=== PATIENT | female | born 1950 | race Caucasian/White ===

== ENCOUNTER 2016-07-25 23:36 | Emergency (ER) | payer MEDICARE ==
[2016-07-25 23:45] VITALS: RESP 18
[2016-07-26] MEDS ORDERED: DIPH,PERTUS(ACELL)TETVAC-LF 0.5 ML VIAL IM ONE (01:16)
[2016-07-26] MEDS ORDERED: CLINDAMYCIN 150 MG CAP PO STA (01:22)
[2016-07-26] MEDS ORDERED: CIPROFLOXACIN HCL 500 MG TAB PO STA (01:22)
--- NOTE | 2016-07-26 01:29 | ED ---
Animal Bite HPI - General Chief Complaint: Animal Bite Stated Complaint: leg pain-cat scratches Time Seen by Provider: 07/26/16 00:28 Source: patient, RN notes reviewed Mode of arrival: ambulatory Limitations: no limitations - History of Present Illness Initial Comments: Patient is a 66-year-old female presents to the emergency room for evaluation of right lower leg animal bites. Patient states she was playing with her cat and all of a sudden attacked her right lower leg. Patient states this does happen sometimes. Patient states that she has multiple Bites and scratches all over her leg with bleeding. Patient does state they are planning on having the cat quarantined to watch for any abnormal activity. Patient states she is not sure if cat has received rabies vaccine or not. patient states she is not up-to- date on her tetanus vaccine. Patient denies any significant pain. Patient denies numbness or tingling in her feet. Patient denies taking any blood thinners. Patient denies any other injuries during incident. - Related Data Home Medications Medication Instructions Recorded Confirmed Albuterol Inhaler [Ventolin Hfa 1 - 2 puff INHALATION Q6HR PRN 09/05/15 09/08/15 Inhaler] Fluticasone/Salmeterol [Advair 1 inhalation PO BID 09/05/15 09/08/15 100-50 Diskus] Multivitamins, Thera [Multivitamin] 1 tab PO DAILY 09/05/15 09/08/15 Previous Rx's Medication Instructions Recorded Ciprofloxacin HCl [Cipro] 500 mg PO Q12HR 10 Days 07/26/16 Clindamycin [Cleocin] 450 mg PO TID 10 Days 07/26/16 Allergies Allergy/AdvReac Type Severity Reaction Status Date / Time Iodinated Contrast Media - Allergy Rash/Hives Verified 07/25/16 23:46 Oral and [Iodinated Contrast Media - IV Dye] Iodine and Iodide Containing Allergy Rash/Hives Verified 07/25/16 23:46 Produc Penicillins Allergy Rash/Hives Verified 07/25/16 23:46 Review of Systems ROS Statement: Those systems with pertinent positive or pertinent negative responses have been documented in the HPI. ROS Other: All systems not noted in ROS Statement are negative. Past Medical History Past Medical History: Asthma, COPD, GERD/Reflux Additional Past Medical History / Comment(s): hx- hiatal hernia, colitis and loose watery stools History of Any Multi-Drug Resistant Organisms: None Reported Past Surgical History: Adenoidectomy, Breast Surgery, Section, Tonsillectomy Additional Past Surgical History / Comment(s): alia oophorectomy Past Anesthesia/Blood Transfusion Reactions: Motion Sickness Smoking Status: Never smoker Past Alcohol Use History: Occasional Past Drug Use History: None Reported - Past Family History Mother Family Medical History: No Reported History General Exam - General Exam Comments Initial Comments: sitting in exam room, no acute distress. Limitations: no limitations General appearance: alert, in no apparent distress Head exam: Present: atraumatic, normocephalic, normal inspection Eye exam: Present: normal appearance ENT exam: Present: normal exam Neck exam: Present: normal inspection Respiratory exam: Present: normal lung sounds bilaterally. Absent: respiratory distress Cardiovascular Exam: Present: regular rate, normal rhythm, normal heart sounds Right Lower Leg exam: Present: full ROM. Absent: normal inspection (multiple excoriations and puncture wounds from cat bite/cat scratches on the anterior portion of the lower leg from the knee to the ankle), tenderness Neurovascular tendon exam: Present: no vascular compromise. Absent: pulse deficit (2+ dorsal pedal and posterior tibial pulses), abnormal cap refill ( capillary refill less than 2 seconds) Back exam: Present: normal inspection Neurological exam: Present: alert, oriented X3, CN II-XII intact Psychiatric exam: Present: normal affect, normal mood Skin exam: Present: warm, dry Course Vital Signs 07/25/16 07/26/16 23:37 01:44 Temperature 99.2 F 98.7 F Pulse Rate 132 H 112 H Respiratory 18 18 Rate Blood Pressure 192/99 182/87 O2 Sat by Pulse 94 L 95 Oximetry Medical Decision Making - Medical Decision Making Patient is a 66-year-old female presents to the emergency room for revaluation of multiple cat bites and scratches over right lower leg. Patient updated on her tetanus vaccine. Patient ALLERGIC to Augmentin. Patient will be started on clindamycin and Cipro. Advised patient to follow-up with primary care provider for reevaluation of the healing of the wounds. I did discuss high rate of infection. Advised patient to return for any worsening symptoms. Patient does state that they are going to quarantine the cat. Return parameters discussed. Case discussed with Dr. Ku. Disposition Clinical Impression: Cat bite Disposition: HOME SELF-CARE Condition: Good Instructions: Animal Bite (ED) Additional Instructions: Clean affected areas with antibacterial soap and water 3 times a day. Take antibiotics as directed. Take Tylenol or Motrin as needed for pain. Please follow up with primary care provider for reevaluation of the wound area. Keep a watch out for any abnormal activity of cat. If any new symptom arises or symptoms worsen, return to ER as soon as possible. Prescriptions: Ciprofloxacin HCl [Cipro] 500 mg PO Q12HR 10 Days Clindamycin [Cleocin] 450 mg PO TID 10 Days Referrals: None,Stated [Primary Care Provider] - 1-2 days Time of Disposition: 01:26
[2016-07-26 01:54] VITALS: BP 182/87; PULSE 112; TEMP 98.7
== END 2016-07-26 01:54 | disposition home or self-care (01) ==
LOC: EC 23:36
DX: S81.851A Open bite, right lower leg, initial encounter (principal); J44.9 Chronic obstructive pulmonary disease, unspecified; J45.909 Unspecified asthma, uncomplicated; Z79.51 Long term (current) use of inhaled steroids; Z79.899 Other long term (current) drug therapy; Z88.0 Allergy status to penicillin; Z91.041 Radiographic dye allergy status; Z23 Encounter for immunization; W55.03XA Scratched by cat, initial encounter; Y93.89 Activity, other specified
CPT/HCPCS: 90471; 90715; 99283

== ENCOUNTER 2017-07-01 01:00 | Emergency (ER) | payer MEDICARE ==
[2017-07-01 01:07] VITALS: TEMP 98.5
[2017-07-01] MEDS ORDERED: SODIUM CHLORIDE 0.9% 500 ML IV STA (01:17)
[2017-07-01] MEDS ORDERED: ONDANSETRON 4 MG/2 ML VIAL IVP STA (01:17)
--- NOTE | 2017-07-01 01:20 | ED ---
Abdominal Pain HPI - General Chief Complaint: Abdominal Pain Stated Complaint: ABD PAIN Time Seen by Provider: 07/01/17 01:04 Source: EMS Mode of arrival: EMS Limitations: no limitations - History of Present Illness Initial Comments: 66-year-old female patient presents to the emergency department today for evaluation of generalized abdominal pain and nausea. Patient states she has vomited once with this. Patient states that the pain started earlier today and has not let up. Patient states that her abdomen felt hard and distended. She states that she has been having diarrhea throughout the day however this is not unusual as she does have colitis and frequent diarrhea. She denies any fevers or chills. She denies any chest pain, shortness of breath, dizziness, weakness , or sweats. Patient denies any recent rash, back pain, numbness, tingling, hematuria, dysuria, urinary urgency, urinary frequency, headache, visual changes , or any other complaints. - Related Data Home Medications Medication Instructions Recorded Confirmed Albuterol Inhaler [Ventolin Hfa 1 - 2 puff INHALATION Q6HR PRN 09/05/15 09/08/15 Inhaler] Fluticasone/Salmeterol [Advair 1 inhalation PO BID 09/05/15 09/08/15 100-50 Diskus] Multivitamins, Thera [Multivitamin] 1 tab PO DAILY 09/05/15 09/08/15 Previous Rx's Medication Instructions Recorded Ciprofloxacin HCl [Cipro] 500 mg PO Q12HR 10 Days tablet 07/26/16 Clindamycin [Cleocin] 450 mg PO TID 10 Days capsule 07/26/16 Ondansetron [Zofran ODT] 4 mg PO Q8HR PRN #10 tab 07/01/17 Allergies Allergy/AdvReac Type Severity Reaction Status Date / Time Iodinated Contrast- Oral and Allergy Rash/Hives Verified 07/01/17 01:08 IV Dye [Iodinated Contrast Media - IV Dye] Iodine and Iodide Containing Allergy Rash/Hives Verified 07/01/17 01:08 Produc Penicillins Allergy Rash/Hives Verified 07/01/17 01:08 Review of Systems ROS Statement: Those systems with pertinent positive or pertinent negative responses have been documented in the HPI. ROS Other: All systems not noted in ROS Statement are negative. Past Medical History Past Medical History: Asthma, COPD, GERD/Reflux, Hypertension Additional Past Medical History / Comment(s): hx- hiatal hernia, colitis and loose watery stools History of Any Multi-Drug Resistant Organisms: None Reported Past Surgical History: Adenoidectomy, Breast Surgery, Section, Tonsillectomy Additional Past Surgical History / Comment(s): alia oophorectomy Past Anesthesia/Blood Transfusion Reactions: Motion Sickness Past Psychological History: No Psychological Hx Reported Smoking Status: Never smoker Past Alcohol Use History: Occasional Past Drug Use History: None Reported - Past Family History Mother Family Medical History: No Reported History General Exam Limitations: no limitations General appearance: alert, in no apparent distress, other (This is a well- developed, well-nourished adult female patient in no acute distress. Vital signs upon presentation are temperature 98.5F, pulse 106, respirations 20, blood pressure 150/65, pulse ox 91% on room air.) Eye exam: Present: normal appearance, PERRL, EOMI. Absent: scleral icterus, conjunctival injection, periorbital swelling ENT exam: Present: normal exam, normal oropharynx, mucous membranes moist Respiratory exam: Present: normal lung sounds bilaterally. Absent: respiratory distress, wheezes, rales, rhonchi, stridor Cardiovascular Exam: Present: regular rate, normal rhythm, normal heart sounds. Absent: systolic murmur, diastolic murmur, rubs, gallop, clicks GI/Abdominal exam: Present: soft, tenderness (generalized), normal bowel sounds. Absent: distended, guarding, rebound, rigid Neurological exam: Present: alert, oriented X3, CN II-XII intact Psychiatric exam: Present: normal affect, normal mood Skin exam: Present: warm, dry, intact, normal color. Absent: rash Course Vital Signs 07/01/17 07/01/17 01:02 02:38 Temperature 98.5 F Pulse Rate 106 H 102 H Respiratory 20 18 Rate Blood Pressure 150/65 133/60 O2 Sat by Pulse 91 L 95 Oximetry Medical Decision Making - Medical Decision Making 66 year-old female patient with past history significant for colitis present to the emergency department today for evaluation of generalized abdominal pain and vomiting. Physical examination did reveal some mild diffuse nonspecific abdominal tenderness. Labs reviewed and are unremarkable. KUB x-ray of the abdomen did show possible ileus and overall nonobstructive bowel gas pattern. Patient did receive Zofran and pain medication here in the department and is feeling better upon reevaluation. She is instructed to follow-up with her primary care physician for recheck in 1-2 days. Return parameters discussed in detail. She verbalizes understanding and agrees with this plan. - Lab Data Result diagrams: 07/01/17 01:10 07/01/17 01:10 Lab Results 07/01/17 07/01/17 07/01/17 Range/Units 01:10 01:10 02:25 WBC 12.1 H (3.8-10.6) k/uL RBC 4.46 (3.80-5.40) m/uL Hgb 12.4 (11.4-16.0) gm/dL Hct 38.4 (34.0-46.0) % MCV 86.0 (80.0-100.0) fL MCH 27.8 (25.0-35.0) pg MCHC 32.3 (31.0-37.0) g/dL RDW 13.6 (11.5-15.5) % Plt Count 297 (150-450) k/uL Neutrophils % 80 % Lymphocytes % 13 % Monocytes % 5 % Eosinophils % 2 % Basophils % 0 % Neutrophils # 9.7 H (1.3-7.7) k/uL Lymphocytes # 1.5 (1.0-4.8) k/uL Monocytes # 0.6 (0-1.0) k/uL Eosinophils # 0.2 (0-0.7) k/uL Basophils # 0.0 (0-0.2) k/uL Sodium 143 (137-145) mmol/L Potassium 4.0 (3.5-5.1) mmol/L Chloride 106 (98-107) mmol/L Carbon Dioxide 25 (22-30) mmol/L Anion Gap 12 mmol/L BUN 24 H (7-17) mg/dL Creatinine 0.80 (0.52-1.04) mg/dL Est GFR (CKD-EPI)AfAm 89 (>60 ml/min/1.73 sqM) Est GFR (CKD-EPI)NonAf 77 (>60 ml/min/1.73 sqM) Glucose 133 H (74-99) mg/dL Calcium 9.3 (8.4-10.2) mg/dL Total Bilirubin 0.2 (0.2-1.3) mg/dL AST 15 (14-36) U/L ALT 28 (9-52) U/L Alkaline Phosphatase 60 (38-126) U/L Total Protein 6.0 L (6.3-8.2) g/dL Albumin 3.5 (3.5-5.0) g/dL Amylase 67 (30-110) U/L Lipase 136 (23-300) U/L Urine Color Yellow Urine Appearance Clear (Clear) Urine pH 5.5 (5.0-8.0) Ur Specific [place] 1.026 (1.001-1.035) Urine Protein Trace H (Negative) Urine Glucose (UA) Negative (Negative) Urine Ketones Negative (Negative) Urine Blood Negative (Negative) Urine Nitrite Negative (Negative) Urine Bilirubin Negative (Negative) Urine Urobilinogen <2.0 (<2.0) mg/dL Ur Leukocyte Esterase Small H (Negative) Urine RBC 1 (0-5) /hpf Urine WBC 2 (0-5) /hpf Urine Bacteria Rare H (None) /hpf Urine Mucus Rare H (None) /hpf - EKG Data -: EKG Interpreted by [place] EKG Comments: EKG obtained at 03 15 shows normal sinus rhythm with a ventricular rate of 93, [place] interval 156, QRS duration 72, QT 354, QTC 440. No evidence of ST elevation or depression. - Radiology Data Radiology results: report reviewed, image reviewed Two-view x-ray of the abdomen shows some linear density at the left and right lung bases. No sign of intestinal obstruction. There is single loop of gas filled small bowel in the mid abdomen. There is no sign of free air. There are no pathologic calcifications over the kidneys. Impression by Dr. Chan shows possible localized small bowel ileus. Subsegmental atelectasis at the lung bases. Disposition Clinical Impression: Abdominal pain, Ileus Disposition: HOME SELF-CARE Condition: Good Instructions: Abdominal Pain (ED), Ileus (ED) Additional Instructions: Start with clear liquid diet and advance as tolerated. Follow-up through primary care physician for reevaluation in 1-2 days. Return here immediately for any new, worsening, or concerning symptoms. Prescriptions: Ondansetron [Zofran ODT] 4 mg PO Q8HR PRN #10 tab PRN Reason: Nausea Is patient prescribed a controlled substance at d/c from ED?: No Referrals: Edil Davis DO [Primary Care Provider] - 1-2 days Time of Disposition: 03:00
[2017-07-01 01:28] LABS: Basophils % (A) 0 %; Eosinophils # (A) 0.2 k/uL (0-0.7); Eosinophils % (A) 2 %; HCT 38.4 % (34.0-46.0); HGB 12.4 gm/dL (11.4-16.0); Lymphocytes # (A) 1.5 k/uL (1.0-4.8); Lymphocytes % (A) 13 %; MCH 27.8 pg (25.0-35.0); MCHC 32.3 g/dL (31.0-37.0); Mean Platelet Volume 7.7; Monocytes # (A) 0.6 k/uL (0-1.0); Monocytes % (A) 5 %; Neutrophils # (A) 9.7 k/uL (1.3-7.7); Neutrophils % (A) 80 %; Platelet Count 297 k/uL (150-450); RBC 4.46 m/uL (3.80-5.40); RDW 13.6 % (11.5-15.5); WBC 12.1 k/uL (3.8-10.6)
[2017-07-01 01:38] LABS: Albumin 3.5 g/dL (3.5-5.0); Calcium 9.3 mg/dL (8.4-10.2); Total Bilirubin 0.2 mg/dL (0.2-1.3)
--- NOTE | 2017-07-01 02:09 | XR ---
EXAMINATION TYPE: XR KUB DATE OF EXAM: 07/01/2017 COMPARISON: NONE HISTORY: Abdominal pain TECHNIQUE: 2 views FINDINGS: There is some linear density at the left and right lung bases. There is no sign of intestin al obstruction. There is a single loop of gas-filled small bowel in the mid abdomen. There is no sign of free air. There are no pathologic calcifications over the kidneys. IMPRESSION: Possible localized small bowel ileus. Subsegmental atelectasis at the lung bases.
[2017-07-01 02:40] VITALS: BP 133/60; PULSE 102; RESP 18
[2017-07-01 02:43] LABS: Appearance,Urine Clear (Clear); Bacteria,Urine Rare /hpf; Bilirubin,Urine Negative (Negative); Blood,Urine Negative (Negative); Color,Urine Yellow; Glucose,Urine (UA) Negative (Negative); Ketones,Urine Negative (Negative); Leukocyte Esterase,Urine Small (Negative); Mucus,Urine Rare /hpf; Nitrite,Urine Negative (Negative); PH, Urine 5.5 (5.0-8.0); Protein,Urine Trace (Negative); RBC,Urine 1 /hpf (0-5); Specific Gravity,Urine 1.026 (1.001-1.035); Urobilinogen,Urine <2.0 mg/dL (<2.0); WBC,Urine 2 /hpf (0-5)
== END 2017-07-01 03:11 | disposition home or self-care (01) ==
LOC: EC 01:00
DX: K56.7 Ileus, unspecified (principal); J98.11 Atelectasis; K52.9 Noninfective gastroenteritis and colitis, unspecified; J44.9 Chronic obstructive pulmonary disease, unspecified; Z79.51 Long term (current) use of inhaled steroids; Z88.0 Allergy status to penicillin; Z91.041 Radiographic dye allergy status; Z79.899 Other long term (current) drug therapy
CPT/HCPCS: 36415; 93005; 80053; 82150; 83690; 85025; 81001; 74018; 99284; 96374; 96361 ×2; J2405

== ENCOUNTER → 2017-12-04 | Outpatient (CLI) | payer MEDICARE ==
--- NOTE | 2017-12-04 13:43 | US ---
EXAMINATION TYPE: US thyroid st tissue head/neck DATE OF EXAM: 12/04/2017 COMPARISON: US 2016 CLINICAL HISTORY: E01.1 Thyromegaly. Follow up thyroid nodules GLAND SIZE: Right Lobe: 4.3 x 1.6 x 2.3 cm Overall Parenchyma: heterogenous Left Lobe: 4.7 x 1.4 x 1.6 cm Overall Parenchyma: heterogeneous Isthmus Thickness: 0.3 cm NODULES RIGHT: # of nodules measured on right: 2 1. 2.1 X 1.3 x 1.9 cm isoechoic solid nodule at the lower pole with well-defined margins. This nodu le is wider than tall and shows intranodular vascularity. Prior size: 2.1 x 1.4 x 1.6 cm 2. 1.1 X 0.9 x 0.9 cm hypoechoic solid nodule at the lower pole with well-defined margins. This nodu le is wider than tall and shows intranodular vascularity. Prior size: 1.2 x 0.9 x 1.1 cm LEFT: # of nodules measured on left: 0 ISTHMUS: # of nodules measured in the isthmus: 0 Bilateral neck scanned, no evidence of lymphadenopathy. There is heterogeneous normal sized thyroid with redemonstration of 2 solid nodules right thyroid lob e that are not significantly changed in size or appearance. No new nodules are evident. IMPRESSION: Overall stable findings, no new suspicious nodules are present.
== END ==
LOC: RADUSWWP 10:24
PROVIDERS: ATTEND Otolaryngology
DX: E01.0 Iodine-deficiency related diffuse (endemic) goiter (principal)
CPT/HCPCS: 36415; 76536; 84443

== ENCOUNTER → 2017-12-31 | Outpatient (CLI) | payer MEDICARE ==
--- NOTE | 2018-01-02 08:24 | MM ---
Reason for exam: screening (asymptomatic). Last mammogram was performed 3 years and 4 months ago. History: Patient is postmenopausal. Family history of breast cancer in grandmother at age 80. Excisional biopsy of the left breast. Excisional biopsy of the right breast. Physical Findings: Nurse did not find any significant physical abnormalities on exam. MG 3D Screening Mammo W/Cad Bilateral CC and MLO view(s) were taken. Prior study comparison: September 07, 2014, left breast MG work up mamm w CAD LT. September 03, 2014, bilateral MG screening mammo w CAD. The breast tissue is heterogeneously dense. This may lower the sensitivity of mammography. There are benign appearing diffuse, grouped and round calcifications bilaterally. There is chronic nodularity in the right breast. There is no discrete abnormality. ASSESSMENT: Benign, BI-RAD 2 RECOMMENDATION: Routine screening mammogram of both breasts in 1 year.
== END | disposition home or self-care (01) ==
LOC: RADMAMWWP 09:58
PROVIDERS: ATTEND Family Medicine
DX: Z12.31 Encounter for screening mammogram for malignant neoplasm of breast (principal)
CPT/HCPCS: 77063; 77067

== ENCOUNTER → 2019-02-06 | Outpatient (CLI) | payer MEDICARE ==
--- NOTE | 2019-02-07 12:04 | XR ---
EXAMINATION TYPE: XR chest 2V DATE OF EXAM: 02/06/2019 COMPARISON: Prior chest x-ray 04/06/[address] 01/24/2012 HISTORY: Sinus infection and cough TECHNIQUE: Frontal and lateral views of the chest are obtained. FINDINGS: There is no focal air space opacity, pleural effusion, or pneumothorax seen. Minimal scarr ing is not significantly changed. The cardiac silhouette size is within normal limits. The osseous structures are intact. There is hiatal hernia with partial intrathoracic stomach. IMPRESSION: No acute cardiopulmonary process. Exam is stable.
== END | disposition home or self-care (01) ==
LOC: RADXRMAIN 16:22
PROVIDERS: ATTEND Family Medicine
DX: J01.90 Acute sinusitis, unspecified (principal)
CPT/HCPCS: 71046

== ENCOUNTER → 2019-02-06 | Outpatient (CLI) | payer MEDICARE ==
--- NOTE | 2019-02-07 12:01 | US ---
EXAMINATION TYPE: US thyroid st tissue head/neck DATE OF EXAM: 02/06/2019 COMPARISON: US 12/04/2017 CLINICAL HISTORY: E04.9 Goiter. Follow up GLAND SIZE: Right Lobe: 4.1 x 2.0 x 1.7 cm Overall Parenchyma: homogenous Left Lobe: 4.3 x 1.4 x 1.5 cm Overall Parenchyma: homogeneous Isthmus Thickness: 0.4 cm NODULES RIGHT: # of nodules measured on right: 2 1. 1.9 X 1.5 x 1.8 cm isoechoic solid nodule at the mid pole with poorly defined margins; . This n odule is wider than tall and shows intranodular vascularity. Prior size: 2.1 x 1.3 x 1.9 cm 2. 1.3 X 0.8 x 1.1 cm hypoechoic mixed nodule at the mid pole with well-defined margins; . This nod ule is wider than tall and shows intranodular vascularity. Prior size: 1.1 x 0.9 x 0.9 cm LEFT: # of nodules measured on left: 0 ISTHMUS: # of nodules measured in the isthmus: 0 Bilateral neck scanned, no evidence of lymphadenopathy. IMPRESSION: Slight interval change in patient's thyroid nodules likely due to differences in measurement techniqu e. The findings thought to be essentially stable
== END ==
LOC: RADUSWWP 15:52
PROVIDERS: ATTEND Family Medicine
DX: E04.2 Nontoxic multinodular goiter (principal)
CPT/HCPCS: 76536

== ENCOUNTER 2019-12-30 20:24 | Observation (INO) | payer MEDICARE ==
[2019-12-30] MEDS ORDERED: SODIUM CHLORIDE 0.9% 1,000 ML IV STA (21:04)
[2019-12-30] MEDS ORDERED: ACETAMINOPHEN TAB 500 MG TAB PO STA (21:11)
[2019-12-30 21:24] LABS: Basophils # (A) 0.1 k/uL (0-0.2); Basophils % (A) 1 %; Eosinophils # (A) 0.4 k/uL (0-0.7); Eosinophils % (A) 5 %; HGB 7.3 gm/dL (11.4-16.0); Hypochromasia Marked; Lymphocytes % (A) 25 %; MCH 22.4 pg (25.0-35.0); MCHC 30.3 g/dL (31.0-37.0); MCV 73.8 fL (80.0-100.0); Mean Platelet Volume 7.3; Microcytosis Slight; Monocytes # (A) 0.5 k/uL (0-1.0); Monocytes % (A) 6 %; Neutrophils % (A) 61 %; Platelet Count 422 k/uL (150-450); Poikilocytosis Moderate; RBC 3.25 m/uL (3.80-5.40); RDW 15.5 % (11.5-15.5); WBC 8.2 k/uL (3.8-10.6)
--- NOTE | 2019-12-30 21:29 | ED ---
SOB HPI - General Chief Complaint: Shortness of Breath Stated Complaint: SOB Time Seen by Provider: 12/30/19 20:49 Source: patient Mode of arrival: ambulatory Limitations: no limitations - History of Present Illness Initial Comments: 69-year-old female with history of PE and DVT presenting to emergency prompt a chief complaint of shortness of breath. States symptoms began earlier today. She denies any chest pain was report dyspnea on exertion. States this feels like her previous PE. Patient reports unilateral leg swelling in the right lower extremity which has been going on only for today. She does report intermittent swelling in her lower extremity secondary to vascular injury from her previous coagulopathy. She denies hemoptysis, recent periods of activity. States over the past year she has been alternating between multiple blood thin ners. Patient states she has taken normal anticoagulants which she appears to be ALLERGIC to them. States she has been on Coumadin is a recently. States earlier this week, her Coumadin levels have been increased to 3 mg per day. She believes the Coumadin could be playing a role to her shortness of breath. - Related Data Home Medications Medication Instructions Recorded Confirmed Albuterol Nebulized [Ventolin 2.5 mg INHALATION RT-QID PRN 12/30/19 12/30/19 Nebulized] Albuterol Sulfate [Ventolin HFA] 2 puff INHALATION RT-Q6H PRN 12/30/19 12/30/19 Fluticasone Propion/Salmeterol 2 puff INHALATION RT-BID 12/30/19 12/30/19 [Wixela 250-50 Inhub] Warfarin Sodium 3 mg PO HS 12/30/19 12/30/19 Allergies Allergy/AdvReac Type Severity Reaction Status Date / Time Iodinated Contrast Media Allergy Rash/Hives Verified 12/30/19 22:10 [Iodinated Contrast Media - IV Dye] Iodine and Iodide Containing Allergy Rash/Hives Verified 12/30/19 22:10 Produc Penicillins Allergy Rash/Hives Verified 12/30/19 22:10 Review of Systems ROS Statement: Those systems with pertinent positive or pertinent negative responses have been documented in the HPI. ROS Other: All systems not noted in ROS Statement are negative. Past Medical History Past Medical History: Asthma, COPD, GERD/Reflux, Hypertension Additional Past Medical History / Comment(s): hx- hiatal hernia, colitis and loose watery stools, DVTs with PE, History of Any Multi-Drug Resistant Organisms: None Reported Past Surgical History: Adenoidectomy, Breast Surgery, Section, Tonsillectomy Additional Past Surgical History / Comment(s): alia oophorectomy, Past Anesthesia/Blood Transfusion Reactions: Motion Sickness Past Psychological History: No Psychological Hx Reported Smoking Status: Never smoker Past Alcohol Use History: Occasional Past Drug Use History: None Reported - Past Family History Mother Family Medical History: No Reported History General Exam Limitations: no limitations General appearance: alert, in no apparent distress Head exam: Present: atraumatic, normocephalic, normal inspection Eye exam: Present: normal appearance, PERRL, EOMI. Absent: scleral icterus, conjunctival injection, nystagmus Pupils: Present: normal accommodation ENT exam: Present: normal exam, normal oropharynx, mucous membranes moist, TM's normal bilaterally, normal external ear exam Neck exam: Present: normal inspection, full ROM. Absent: tenderness, lympha denopathy Respiratory exam: Present: normal lung sounds bilaterally. Absent: respiratory distress, wheezes, rales, rhonchi, stridor, chest wall tenderness, accessory muscle use Cardiovascular Exam: Present: regular rate, normal rhythm, normal heart sounds GI/Abdominal exam: Present: soft. Absent: distended, tenderness, guarding, rebound, rigid Extremities exam: Present: normal inspection, full ROM, normal capillary refill. Absent: tenderness Back exam: Present: normal inspection, full ROM. Absent: tenderness, CVA tenderness (R), CVA tenderness (L) Neurological exam: Present: alert, oriented X3, normal gait Psychiatric exam: Present: normal affect, normal mood Skin exam: Present: warm, dry, intact, normal color Course Vital Signs 12/30/19 12/30/19 20:28 21:25 Temperature 100.4 F H Pulse Rate 118 H 105 H Respiratory 18 18 Rate Blood Pressure 155/83 142/91 O2 Sat by Pulse 96 100 Oximetry - Reevaluation(s) Reevaluation #1: 12/30/19 22:40 Medical record reviewed Medical Decision Making - Medical Decision Making 69-year-old female presenting to the emergency room chief complaint shortness of breath. Physical examination patient does not appear to be in any respiratory distress. No producible chest pain. No abdominal or back tenderness to palpation. EKG revealed sinus tachycardia. Although, d-dimer was within normal limits. Initial troponins are negative. CBC reveals anemia with hemoglobin of 7.3. Patient informed me that she takes iron supplements was typically make her stool black. She does report history of colitis states her stool has been black over the last week since she is taking the ER supplements. INR is 3.2 due to Coumadin. Type and screen pending. Occult stool pending. Her most recent colonoscopy was over 10 years ago. covid-19 and influenza testing pending. Patient will be admitted for further medical management. Case discussed with Admitting is Dr Sudheer MCINTYRE on consult - Lab Data Result diagrams: 12/30/19 21:11 12/30/19 21:11 Lab Results 12/30/19 12/30/19 12/30/19 Range/Units 21:11 21:11 21:11 WBC 8.2 (3.8-10.6) k/uL RBC 3.25 L (3.80-5.40) m/uL Hgb 7.3 L (11.4-16.0) gm/dL Hct 24.0 L (34.0-46.0) % MCV 73.8 L (80.0-100.0) fL MCH 22.4 L (25.0-35.0) pg MCHC 30.3 L (31.0-37.0) g/dL RDW 15.5 (11.5-15.5) % Plt Count 422 (150-450) k/uL MPV 7.3 Neutrophils % 61 % Lymphocytes % 25 % Monocytes % 6 % Eosinophils % 5 % Basophils % 1 % Neutrophils # 5.0 (1.3-7.7) k/uL Lymphocytes # 2.0 (1.0-4.8) k/uL Monocytes # 0.5 (0-1.0) k/uL Eosinophils # 0.4 (0-0.7) k/uL Basophils # 0.1 (0-0.2) k/uL Hypochromasia Marked Poikilocytosis Moderate Microcytosis Slight PT 31.2 H (9.0-12.0) sec INR 3.2 H (<1.2) APTT 33.7 H (22.0-30.0) sec D-Dimer 0.38 (<0.60) mg/L FEU Sodium 137 (137-145) mmol/L Potassium 4.3 (3.5-5.1) mmol/L Chloride 105 (98-107) mmol/L Carbon Dioxide 27 (22-30) mmol/L Anion Gap 5 mmol/L BUN 23 H (7-17) mg/dL Creatinine 0.95 (0.52-1.04) mg/dL Est GFR (CKD-EPI)AfAm 71 (>60 ml/min/1.73 sqM) Est GFR (CKD-EPI)NonAf 62 (>60 ml/min/1.73 sqM) Glucose 98 (74-99) mg/dL Plasma Lactic Acid Andrey (0.7-2.0) mmol/L Calcium 8.8 (8.4-10.2) mg/dL Total Bilirubin 0.3 (0.2-1.3) mg/dL AST 30 (14-36) U/L ALT 19 (4-34) U/L Alkaline Phosphatase 77 (38-126) U/L Troponin I (0.000-0.034) ng/mL Total Protein 6.7 (6.3-8.2) g/dL Albumin 3.8 (3.5-5.0) g/dL 12/30/19 12/30/19 Range/Units 21:11 21:11 WBC (3.8-10.6) k/uL RBC (3.80-5.40) m/uL Hgb (11.4-16.0) gm/dL Hct (34.0-46.0) % MCV (80.0-100.0) fL MCH (25.0-35.0) pg MCHC (31.0-37.0) g/dL RDW (11.5-15.5) % Plt Count (150-450) k/uL MPV Neutrophils % % Lymphocytes % % Monocytes % % Eosinophils % % Basophils % % Neutrophils # (1.3-7.7) k/uL Lymphocytes # (1.0-4.8) k/uL Monocytes # (0-1.0) k/uL Eosinophils # (0-0.7) k/uL Basophils # (0-0.2) k/uL Hypochromasia Poikilocytosis Microcytosis PT (9.0-12.0) sec INR (<1.2) APTT (22.0-30.0) sec D-Dimer (<0.60) mg/L FEU Sodium (137-145) mmol/L Potassium (3.5-5.1) mmol/L Chloride (98-107) mmol/L Carbon Dioxide (22-30) mmol/L Anion Gap mmol/L BUN (7-17) mg/dL Creatinine (0.52-1.04) mg/dL Est GFR (CKD-EPI)AfAm (>60 ml/min/1.73 sqM) Est GFR (CKD-EPI)NonAf (>60 ml/min/1.73 sqM) Glucose (74-99) mg/dL Plasma Lactic Acid Andrey 1.8 (0.7-2.0) mmol/L Calcium (8.4-10.2) mg/dL Total Bilirubin (0.2-1.3) mg/dL AST (14-36) U/L ALT (4-34) U/L Alkaline Phosphatase (38-126) U/L Troponin I <0.012 (0.000-0.034) ng/mL Total Protein (6.3-8.2) g/dL Albumin (3.5-5.0) g/dL - EKG Data EKG Comments: Sinus tachycardia Ventricular rate 113, [place] 150, QRS 62, QTc 441. Disposition Clinical Impression: Anemia, Shortness of breath Disposition: ADMITTED IP TO THIS [facility] Condition: Poor Instructions (If sedation given, give patient instructions): Bronchiolitis (ED) Additional Instructions: Patient will be admitted Is patient prescribed a controlled substance at d/c from ED?: No Referrals: Enrique Rios MD [Primary Care Provider] - 1-2 days Time of Disposition: 22:43
[2019-12-30 21:30] LABS: Albumin 3.8 g/dL (3.5-5.0); Calcium 8.8 mg/dL (8.4-10.2); Potassium 4.3 mmol/L (3.5-5.1); Total Bilirubin 0.3 mg/dL (0.2-1.3); Total Protein 6.7 g/dL (6.3-8.2)
--- NOTE | 2019-12-30 21:35 | XR ---
EXAMINATION TYPE: XR chest 2V DATE OF EXAM: 12/30/2019 COMPARISON: 01/27/2019 HISTORY: Difficulty breathing There is some linear density in the lower lung vasquez bilaterally consistent with mild atelectasis. There is hiatal hernia with fluid level. There is no heart failure. Upper lung vasquez are clear. Ther e are no hilar masses. There is no sign of pleural effusion. IMPRESSION: Mild subsegmental atelectasis unchanged. Normal heart. Hiatal hernia increased compared t o old exam.
[2019-12-30 21:39] LABS: D-Dimer 0.38 mg/L FEU (<0.60); INR 3.2 (<1.2); Partial Thromboplastin Time 33.7 sec (22.0-30.0); Prothrombin Time 31.2 sec (9.0-12.0)
[2019-12-30] MEDS ORDERED: MORPHINE SULFATE 4 MG/ML SYRINGE IV PRN (22:32)
[2019-12-30] MEDS ORDERED: ONDANSETRON 4 MG/2 ML VIAL IVP PRN (22:32)
[2019-12-30] MEDS ORDERED: NALOXONE 0.4 MG/ML 1 ML VIAL IV PRN (22:32)
[2019-12-30] MEDS ORDERED: LORazepam 2 MG/ML INJ IV PRN (22:32)
[2019-12-31] MEDS ORDERED: ALBUTEROL NEBULIZED 2.5 MG/3 ML INHALATION PRN (09:32)
[2019-12-31] MEDS ORDERED: ALBUTEROL HFA INHALER INHALATION PRN (09:32)
[2019-12-31 10:00] LABS: Albumin 3.2 g/dL (3.5-5.0); Calcium 8.1 mg/dL (8.4-10.2); Potassium 4.2 mmol/L (3.5-5.1); Total Bilirubin 0.4 mg/dL (0.2-1.3); Total Protein 5.8 g/dL (6.3-8.2)
[2019-12-31] MEDS ORDERED: SODIUM FERRIC GLUCONAT-SUCROSE 125 MG in SODIUM CHLORIDE 0.9% 100 ML IVPB ONE (10:00)
[2019-12-31 10:12] LABS: Basophils % (A) 1 %; Eosinophils # (A) 0.4 k/uL (0-0.7); Eosinophils % (A) 7 %; HCT 21.9 % (34.0-46.0); Hypochromasia Marked; Lymphocytes # (A) 1.3 k/uL (1.0-4.8); Lymphocytes % (A) 25 %; MCH 22.3 pg (25.0-35.0); MCHC 29.2 g/dL (31.0-37.0); MCV 76.2 fL (80.0-100.0); Microcytosis Slight; Monocytes # (A) 0.3 k/uL (0-1.0); Monocytes % (A) 7 %; Neutrophils % (A) 59 %; Platelet Count 363 k/uL (150-450); Poikilocytosis Moderate; RBC 2.87 m/uL (3.80-5.40); RDW 15.4 % (11.5-15.5); WBC 5.1 k/uL (3.8-10.6)
--- NOTE | 2019-12-31 10:26 | P.HPIM ---
History of Present Illness 69-year-old pleasant female with known history of PE and DVT in the past and was on multiple anticoagulants which she was ALLERGIC to and subsequently was changed to Coumadin and patient is therapeutic on Coumadin at this time. Joyti ent came in with some exertional shortness of breath found to have hemoglobin of around 7.1 patient is admitted with concerns of GI bleed although patient doesn't have any hematemesis hematochezia, vaginal bleed, hematuria, melanotic stools or hemoptysis. Patient is to local blood was positive but this is neither specific not sensitive test to diagnose acute GI bleed. Patient appears to iron deficiency anemia with low MCV. Gastrin probably was consulted. If cleared by gastroenterology patient will be discharged today, May need an outpatient endoscopy to rule out any subacute GI bleed since her hemoglobin is 7.1 and she came in with shortness of breath and there is a possibility of subacute GI bleed patient will be transfused with 1 unit of PRBC along with transfusion of IV iron and ferritin and the other iron studies were ordered which will be followed by PCP as an outpatient. Patient does have a lot of ALLERGIES and asthma patient is presently not an asthma exacerbation but doesn't does have stuffy nose for which patient was prescribed Miranda. Patient although doesn't believe this stuffy nose contributed to her symptoms of shortness of breath that actually resolved at this time all the workup is so far negative d-dimer is 0.38 which is within normal limits Review of Systems REVIEW OF SYSTEMS: CONSTITUTIONAL: No fever, no malaise, no fatigue. HEENT: No recent visual problems or hearing problems. Denied any sore throat. CARDIOVASCULAR: No chest pain, orthopnea, PND, no palpitations, no syncope. PULMONARY: no cough, no hemoptysis. GASTROINTESTINAL: No diarrhea, no nausea, no vomiting, no abdominal pain. NEUROLOGICAL: No headaches, no weakness, no numbness. HEMATOLOGICAL: Denies any bleeding or petechiae. GENITOURINARY: Denies any burning micturition, frequency, or urgency. MUSCULOSKELETAL/RHEUMATOLOGICAL: Denies any joint pain, swelling, or any muscle pain. ENDOCRINE: Denies any polyuria or polydipsia. The rest of the 14-point review of systems is negative. Past Medical History Past Medical History: Asthma, COPD, GERD/Reflux, Hypertension Additional Past Medical History / Comment(s): hx- hiatal hernia, colitis and loose watery stools, DVTs with PE, History of Any Multi-Drug Resistant Organisms: None Reported Past Surgical History: Adenoidectomy, Breast Surgery, Section, Tonsillectomy Additional Past Surgical History / Comment(s): alia oophorectomy, Past Anesthesia/Blood Transfusion Reactions: Motion Sickness Past Psychological History: No Psychological Hx Reported Smoking Status: Never smoker Past Alcohol Use History: Occasional Past Drug Use History: None Reported - Past Family History Mother Family Medical History: No Reported History Medications and Allergies Home Medications Medication Instructions Recorded Confirmed Type Albuterol Nebulized [Ventolin 2.5 mg INHALATION RT-QID PRN 12/30/19 12/30/19 History Nebulized] Albuterol Sulfate [Ventolin HFA] 2 puff INHALATION RT-Q6H PRN 12/30/19 12/30/19 History Fluticasone Propion/Salmeterol 2 puff INHALATION RT-BID 12/30/19 12/30/19 History [Wixela 250-50 Inhub] Warfarin Sodium 3 mg PO HS 12/30/19 12/30/19 History Fexofenadine HCl [Miranda Allergy] 180 mg PO DAILY #30 tab 12/31/19 Rx Allergies Allergy/AdvReac Type Severity Reaction Status Date / Time Iodinated Contrast Media Allergy Rash/Hives Verified 12/30/19 22:10 [Iodinated Contrast Media - IV Dye] Iodine and Iodide Containing Allergy Rash/Hives Verified 12/30/19 22:10 Produc Penicillins Allergy Rash/Hives Verified 12/30/19 22:10 Physical Exam Vitals: Vital Signs Temp Pulse Resp BP Pulse Ox 12/31/19 09:00 86 18 134/72 100 12/31/19 07:50 92 18 147/73 97 12/31/19 05:00 83 18 134/60 98 12/31/19 04:00 97 18 132/62 98 12/31/19 03:00 88 18 131/65 99 12/31/19 02:00 85 19 153/77 100 12/31/19 01:07 93 19 149/75 100 12/31/19 00:00 90 19 144/74 98 12/30/19 23:01 98.3 F 107 H 16 156/94 100 12/30/19 21:25 105 H 18 142/91 100 12/30/19 20:28 100.4 F H 118 H 18 155/83 96 Intake and Output 12/30/19 12/31/19 12/31/19 22:59 06:59 14:59 Other: Weight 72.575 kg PHYSICAL EXAMINATION: GENERAL: The patient is alert and oriented x3, not in any acute distress. Well developed, well nourished. HEENT: Pupils are round and equally reacting to light. EOMI. No scleral icterus. No conjunctival pallor. Normocephalic, atraumatic. No pharyngeal erythema. No thyromegaly. She does have significant nasal congestion and sinusitis CARDIOVASCULAR: S1 and S2 present. No murmurs, rubs, or gallops. PULMONARY: Chest is clear to auscultation, no wheezing or crackles. ABDOMEN: Soft, nontender, nondistended, normoactive bowel sounds. No palpable organomegaly. MUSCULOSKELETAL: No joint swelling or deformity. EXTREMITIES: No cyanosis, clubbing, or pedal edema. NEUROLOGICAL: Gross neurological examination did not reveal any focal deficits. SKIN: No rashes. Results CBC & Chem 7: 12/30/19 21:11 12/31/19 09:18 Labs: Abnormal Lab Results - Last 24 Hours (Table) 12/30/19 12/30/19 12/30/19 Range/Units 21:11 21:11 21:11 RBC 3.25 L (3.80-5.40) m/uL Hgb 7.3 L (11.4-16.0) gm/dL Hct 24.0 L (34.0-46.0) % MCV 73.8 L (80.0-100.0) fL MCH 22.4 L (25.0-35.0) pg MCHC 30.3 L (31.0-37.0) g/dL PT 31.2 H (9.0-12.0) sec INR 3.2 H (<1.2) APTT 33.7 H (22.0-30.0) sec Chloride (98-107) mmol/L BUN 23 H (7-17) mg/dL Calcium (8.4-10.2) mg/dL Total Protein (6.3-8.2) g/dL Albumin (3.5-5.0) g/dL Stool Occult Blood (Negative) 12/30/19 12/31/19 Range/Units 23:03 09:18 RBC (3.80-5.40) m/uL Hgb (11.4-16.0) gm/dL Hct (34.0-46.0) % MCV (80.0-100.0) fL MCH (25.0-35.0) pg MCHC (31.0-37.0) g/dL PT (9.0-12.0) sec INR (<1.2) APTT (22.0-30.0) sec Chloride 109 H (98-107) mmol/L BUN (7-17) mg/dL Calcium 8.1 L (8.4-10.2) mg/dL Total Protein 5.8 L (6.3-8.2) g/dL Albumin 3.2 L (3.5-5.0) g/dL Stool Occult Blood Positive H (Negative) Assessment and Plan Plan: -Shortness of breath: Anemia no evidence of acute GI bleed. Will be transfused 1 unit of PRBC, we'll transfuse IV iron will be discharged to follow-up as an outpatient for further workup for anemia. Patient will be evaluated for gastroenterology. Endoscopy Evaluation as per gastroenterology. -ALLERGIC rhinitis, sinusitis without any evidence of asthma exacerbation: Patient will be given prescription for Miranda -History of multiple DVTs in the past on Coumadin and therapeutic and INR patient will resume the same dose of Coumadin with repeat INR check in about 3-4 days -Possible severe iron deficiency anemia: IV iron transfusion -Gastroesophageal reflux disease: Patient was given prescription for Prilosec Patient will be discharged today after clearance from gastroenterology.
[2019-12-31] MEDS: LORATADINE 10 MG TAB PO SCH (10:27)
[2019-12-31 10:32] LABS: HGB 6.4 gm/dL (11.4-16.0)
[2019-12-31] MEDS ORDERED: PHYTONADIONE 10 MG in SODIUM CHLORIDE 0.9% 50 ML IVPB STA (15:03)
[2019-12-31 15:35] LABS: % Iron Saturation 2.16 (12.00-45.00); Ferritin 3.6 ng/mL (10.0-291.0)
[2019-12-31] MEDS ORDERED: PEG 3350-NA SULF,BICARB,CL/KCL 4,000 ML BOTTLE PO ONE (16:00)
[2019-12-31] MEDS ORDERED: bisacodyL 5 MG TABLET.DR PO ONE (17:00)
[2019-12-31 19:18] LABS: INR 3.1 (<1.2)
[2019-12-31] MEDS: SYMBICORT 80-4.5 MCG INHALER INHALATION SCH ×2 (19:58→20:01)
--- NOTE | 2020-01-01 06:22 | P.CONS ---
History of Present Illness - Reason for Consult Consult date: 12/31/19 Anemia Requesting physician: Best Garcia - Chief Complaint Shortness of breath - History of Present Illness 69-year-old female with multiple medical comorbidities including a history ofPE and DVT requiring anticoagulation therapy currently on Coumadin as well as a h istory of asthma, GERD and hypertension who presented to the hospital due to shortness of breath. Patient was found to be anemic with a hemoglobin of 7.1currently 6.4. The patient is awaiting transfusion and she has antibodies and is requiring blood be provided from [place]. Of note, the patient is somewhat of a poor historian and unable to provide many details regarding her medical history. She believes she was told at some point she had colitis, however she's never received any chronic medical therapy and last colonoscopy in 08/2015 was within normal limits. Currently she is denying any signs or symptoms of GI bleeding with no coffee-ground emesis, hematemesis, melena or hematochezia reported. She does state that she has some frequency of bowel movements usually after eating. She denies any abdominal pain. Her stool was positive for blood. laboratory evaluation was significant for a microcytic hypochromic anemia with stool testing positive for blood and supratherapeutic INR of 3.2.currently the patient is receiving IV iron therapy. Review of Systems REVIEW OF SYSTEMS: CONSTITUTIONAL: Denies any fevers, chills, weight change or fatigue. CARDIOVASCULAR: Denies any chest pain, palpitations high or low blood pressures RESPIRATORY: Denies any hemoptysis or cough a patient with evidence of shortness of breath prior to presentation. GENITOURINARY: No dysuria or hematuria. MUSCULOSKELETAL: No weakness reported. SKIN: Denies any new rashes or lesions, jaundice or pallor. PSYCHIATRIC: Denies any depression or anxiety. NEUROLOGY: Denies headache, denies any new focal deficits. EARS/NOSE/THROAT: No recent hearing change, congestion, nasal discharge or sore throat. EYES: No pain in eyes, discharge or change in vision. GASTROINTESTINAL: As per HPI. Past Medical History Past Medical History: Asthma, COPD, GERD/Reflux, Hypertension Additional Past Medical History / Comment(s): hx- hiatal hernia, colitis and loose watery stools, DVTs with PE, History of Any Multi-Drug Resistant Organisms: None Reported Past Surgical History: Adenoidectomy, Breast Surgery, Section, Tonsillectomy Additional Past Surgical History / Comment(s): alia oophorectomy, Past Anesthesia/Blood Transfusion Reactions: Motion Sickness Past Psychological History: No Psychological Hx Reported Smoking Status: Never smoker Past Alcohol Use History: Occasional Past Drug Use History: None Reported - Past Family History Mother Family Medical History: No Reported History Medications and Allergies Home Medications Medication Instructions Recorded Confirmed Type Albuterol Nebulized [Ventolin 2.5 mg INHALATION RT-QID PRN 12/30/19 12/30/19 History Nebulized] Albuterol Sulfate [Ventolin HFA] 2 puff INHALATION RT-Q6H PRN 12/30/19 12/30/19 History Fluticasone Propion/Salmeterol 2 puff INHALATION RT-BID 12/30/19 12/30/19 History [Wixela 250-50 Inhub] Warfarin Sodium 3 mg PO HS 12/30/19 12/30/19 History Fexofenadine HCl [Miranda Allergy] 180 mg PO DAILY #30 tab 12/31/19 Rx Omeprazole [PriLOSEC] 40 mg PO [id number]-[id number] #14 capsule. 12/31/19 Rx Allergies Allergy/AdvReac Type Severity Reaction Status Date / Time Iodinated Contrast Media Allergy Rash/Hives Verified 12/30/19 22:10 [Iodinated Contrast Media - IV Dye] Iodine and Iodide Containing Allergy Rash/Hives Verified 12/30/19 22:10 Produc Penicillins Allergy Rash/Hives Verified 12/30/19 22:10 Physical Exam Vitals: Vital Signs Temp Pulse Resp BP Pulse Ox 12/31/19 13:00 97.9 F 91 18 137/63 99 12/31/19 12:25 87 18 137/77 99 12/31/19 09:00 86 18 134/72 100 12/31/19 07:50 92 18 147/73 97 12/31/19 05:00 83 18 134/60 98 12/31/19 04:00 97 18 132/62 98 12/31/19 03:00 88 18 131/65 99 12/31/19 02:00 85 19 153/77 100 12/31/19 01:07 93 19 149/75 100 12/31/19 00:00 90 19 144/74 98 12/30/19 23:01 98.3 F 107 H 16 156/94 100 12/30/19 21:25 105 H 18 142/91 100 12/30/19 20:28 100.4 F H 118 H 18 155/83 96 Intake and Output 12/30/19 12/31/19 12/31/19 22:59 06:59 14:59 Other: Weight 72.575 kg On physical examination, patient appears comfortable in no apparent distress. HEAD: Normocephalic, atraumatic. EYES: No scleral icterus. No conjunctival injection. MOUTH: No lesions, tongue midline. NECK: Trachea midline, no gross abnormalities. CHEST: Clear to auscultation with no wheezing or rhonchi appreciated. HEART: Regular rate and rhythm. ABDOMEN: Soft, obese. Bowel sounds are positive. No organomegaly. No guarding or rigidity. EXTREMITIES: No pedal edema. SKIN: No rashes, no jaundice. NEUROLOGIC: Alert and oriented x3. No focal deficits. Results CBC & Chem 7: 12/31/19 08:04 12/31/19 09:18 Labs: Abnormal Lab Results - Last 24 Hours (Table) 12/30/19 12/30/19 12/30/19 Range/Units 21:11 21:11 21:11 RBC 3.25 L (3.80-5.40) m/uL Hgb 7.3 L (11.4-16.0) gm/dL Hct 24.0 L (34.0-46.0) % MCV 73.8 L (80.0-100.0) fL MCH 22.4 L (25.0-35.0) pg MCHC 30.3 L (31.0-37.0) g/dL PT 31.2 H (9.0-12.0) sec INR 3.2 H (<1.2) APTT 33.7 H (22.0-30.0) sec Chloride (98-107) mmol/L BUN 23 H (7-17) mg/dL Calcium (8.4-10.2) mg/dL Total Protein (6.3-8.2) g/dL Albumin (3.5-5.0) g/dL Stool Occult Blood (Negative) 12/30/19 12/31/19 12/31/19 Range/Units 23:03 08:04 09:18 RBC 2.87 L (3.80-5.40) m/uL Hgb 6.4 L* (11.4-16.0) gm/dL Hct 21.9 L (34.0-46.0) % MCV 76.2 L (80.0-100.0) fL MCH 22.3 L (25.0-35.0) pg MCHC 29.2 L (31.0-37.0) g/dL PT (9.0-12.0) sec INR (<1.2) APTT (22.0-30.0) sec Chloride 109 H (98-107) mmol/L BUN (7-17) mg/dL Calcium 8.1 L (8.4-10.2) mg/dL Total Protein 5.8 L (6.3-8.2) g/dL Albumin 3.2 L (3.5-5.0) g/dL Stool Occult Blood Positive H (Negative) Chest x-ray: report reviewed (findings ofhiatal hernia with atelectasis chest x- ray) Assessment and Plan (1) Microcytic anemia Narrative/Plan: 69-year-old female with multiple medical comorbidities including prior DVT and PE on anticoagulation therapy with Coumadin therapy who presented to the hospital due to shortness of breath. Patient found to have a hemoglobin of 6.4 with microcytic indices on presentation with a supratherapeutic INR of 3.2. She denies any signs or symptoms of GI bleeding but stool was positive for occult blood. She reports a questionable history of colitis, however on last colonoscopy in 2016 the colon was described as within normal limits. The patient does report occasional Motrin use, but denies any regular NSAIDs. She denies any history of peptic ulcer disease. Unclear etiology, given acute fall in hemoglobin and microcytic indices suggestive of an iron deficiency, we'll plan to rule out GI bleed from peptic ulcer disease, esophagitis, gastritis, AVM or other etiology. Current Visit: Yes Status: Acute Code(s): D50.9 - IRON DEFICIENCY ANEMIA, UNSPECIFIED SNOMED Code(s): 829930898 (2) Stool guaiac positive Current Visit: Yes Status: Acute Code(s): R19.5 - OTHER FECAL ABNORMALITIES SNOMED Code(s): 64865909 Plan: supportive care Clear liquid diet Bowel prep ordered vitamin K 10 mg IV ordered Plan to repeat INR Continue to monitor hemoglobin and hematocrit and transfuse as needed, currently transfusion of PRBCs is pending Hold anticoagulation therapy for now Monitor for any signs or symptoms of GI bleeding Plan for EGD and colonoscopy tomorrow for further evaluation IV iron therapy ordered by primary team Thank you for allowing us participate in the care of the patient
[2020-01-01] MEDS ORDERED: PHYTONADIONE 10 MG in SODIUM CHLORIDE 0.9% 50 ML IVPB ONE (06:30)
[2020-01-01 06:31] LABS: Anisocytosis Slight; Basophils # (A) 0.1 k/uL (0-0.2); Basophils % (A) 1 %; Eosinophils # (A) 0.2 k/uL (0-0.7); Eosinophils % (A) 3 %; HCT 24.7 % (34.0-46.0); HGB 7.7 gm/dL (11.4-16.0); Hypochromasia Marked; Lymphocytes # (A) 1.4 k/uL (1.0-4.8); Lymphocytes % (A) 19 %; MCH 23.7 pg (25.0-35.0); MCHC 31.3 g/dL (31.0-37.0); MCV 75.8 fL (80.0-100.0); Mean Platelet Volume 7.6; Microcytosis Slight; Monocytes # (A) 0.4 k/uL (0-1.0); Monocytes % (A) 6 %; Neutrophils # (A) 5.1 k/uL (1.3-7.7); Neutrophils % (A) 70 %; Platelet Count 324 k/uL (150-450); Poikilocytosis Moderate; RBC 3.25 m/uL (3.80-5.40); RDW 16.8 % (11.5-15.5); WBC 7.3 k/uL (3.8-10.6)
[2020-01-01] MEDS: LORATADINE 10 MG TAB PO SCH (07:45)
[2020-01-01] MEDS: SYMBICORT 80-4.5 MCG INHALER INHALATION SCH (08:26)
[2020-01-01 09:08] LABS: INR 1.2 (<1.2); Prothrombin Time 11.7 sec (9.0-12.0)
[2020-01-01 09:29] LABS: INR 1.18 (0.90-1.11); Prothrombin Time 12.6 sec (9.9-11.9)
[2020-01-01] MEDS ORDERED: SODIUM FERRIC GLUCONAT-SUCROSE 125 MG in SODIUM CHLORIDE 0.9% 100 ML IVPB ONE (09:40)
--- NOTE | 2020-01-01 10:48 | P.DS ---
Providers Date of admission: 12/30/19 22:27 Attending physician: Vince Willard MD Consults: 12/30/19 22:32 Consult Physician Stat Consulting Provider: Celio Mccloud Consult Reason/Comments: Anemia Do you want consulting provider notified?: Yes Primary care physician: Enrique Rios MD Hospital Course: Patient is a 16-year-old female was admitted for a simple right anemia. Patient repeat hemoglobin was around 6.4 part of which is evaluated today for effect. Patient was given 1 unit of PRBC transfusion after which it went up to 7.7. Patient is undergoing upper GI endoscopy and colonoscopy today. There is no clinical evidence of acute GI bleed at this time. After the endoscopy patient probably will be discharged unless there is significant findings that will limit her discharge. And has severe iron deficiency anemia with serum ferritin of around 3 patient received the transfusion of her IV iron as today we'll transfuse her one motor unit of IV iron after that patient will be discharged with follow-up with hematology so that she can receive transfusions of her iron as an outpatient. Patient didn't tolerate total ferrous sulfate in the past although prescription for that was provided. Patient was given vitamin K for an endoscopy and patient INR is 1.2 today. Patient was last removed in resume her Coumadin upon discharge and INR need to be checked in about 5-7 days. PHYSICAL EXAMINATION: GENERAL: The patient is alert and oriented x3, not in any acute distress. Well developed, well nourished. HEENT: Pupils are round and equally reacting to light. EOMI. No scleral icterus. No conjunctival pallor. Normocephalic, atraumatic. No pharyngeal erythema. No thyromegaly. She does have significant nasal congestion and sinusitis CARDIOVASCULAR: S1 and S2 present. No murmurs, rubs, or gallops. PULMONARY: Chest is clear to auscultation, no wheezing or crackles. ABDOMEN: Soft, nontender, nondistended, normoactive bowel sounds. No palpable organomegaly. MUSCULOSKELETAL: No joint swelling or deformity. EXTREMITIES: No cyanosis, clubbing, or pedal edema. NEUROLOGICAL: Gross neurological examination did not reveal any focal deficits. SKIN: No rashes. Assessment and Plan Plan: -Shortness of breath: Anemia no evidence of acute GI bleed. Will be transfused 1 unit of PRBC, transfusing total of her 2 bags of IV Ativan. 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 Patient Condition at Discharge: Poor Plan - Discharge Summary New Discharge Prescriptions: New Fexofenadine HCl [Miranda Allergy] 180 mg PO DAILY #30 tab Omeprazole [PriLOSEC] 40 mg PO AC-BRKFST #14 capsule. Ferrous Sulfate [Feosol] 325 mg PO BID #60 tab No Action Warfarin Sodium 3 mg PO HS Albuterol Sulfate [Ventolin HFA] 2 puff INHALATION RT-Q6H PRN PRN Reason: Shortness Of Breath Albuterol Nebulized [Ventolin Nebulized] 2.5 mg INHALATION RT-QID PRN PRN Reason: Shortness Of Breath Fluticasone Propion/Salmeterol [Wixela 250-50 Inhub] 2 puff INHALATION RT-BID Discharge Medication List Albuterol Nebulized [Ventolin Nebulized] 2.5 mg INHALATION RT-QID PRN 12/30/19 [History] Albuterol Sulfate [Ventolin HFA] 2 puff INHALATION RT-Q6H PRN 12/30/19 [History] Fluticasone Propion/Salmeterol [Wixela 250-50 Inhub] 2 puff INHALATION RT-BID 12/30/19 [History] Warfarin Sodium 3 mg PO HS 12/30/19 [History] Fexofenadine HCl [Miranda Allergy] 180 mg PO DAILY #30 tab 12/31/19 [Rx] Omeprazole [PriLOSEC] 40 mg PO AC-BRKFST #14 capsule. 12/31/19 [Rx] Ferrous Sulfate [Feosol] 325 mg PO BID #60 tab 01/01/20 [Rx] Follow up Appointment(s)/Referral(s): Jac Coates MD [STAFF PHYSICIAN] - 1 Week Enrique Rois MD [Primary Care Provider] - 3 Days Celio Mccloud MD [STAFF PHYSICIAN] - 1 Week Patient Instructions/Handouts: Bronchiolitis (ED) Activity/Diet/Wound Care/Special Instructions: Patient will be admitted Discharge Disposition: HOME SELF-CARE
[2020-01-01] MEDS ORDERED: LACTATED RINGERS 1,000 ML IV ONE (14:07)
[2020-01-01] MEDS ORDERED: LIDOCAINE 1% INJ 10MG/ML (20 ML MDV) ONE (14:08)
[2020-01-01] MEDS ORDERED: fentaNYL (PF) 50 MCG/ML 2 ML AMP ONE (14:08)
[2020-01-01] MEDS ORDERED: PROPOFOL 10 MG/ML 20 ML VIAL IV ONE (14:08)
[2020-01-01] MEDS ORDERED: MIDAZOLAM 2 MG/2 ML VIAL ONE (14:08)
[2020-01-01] MEDS ORDERED: PANTOPRAZOLE 40 MG TABLET PO STA (14:45)
--- NOTE | 2020-01-01 14:50 | P.PCN ---
Date of Procedure: 01/01/20 Procedure(s) Performed: Brief history: Patient is a pleasant 69-year-old white female admitted hospital with symptomatic microcytic hypochromic anemia .history of DVT in the past and has been on Coumadin. INR was 3.2 at the time of the hospital. She received vitamin K and this morning INR is 1.2 she is scheduled for an upper endoscopy as well as colonoscopy to evaluate further.. Procedure performed: EsophagogastroduodenoscopyWith biopsy Colonoscopy Preoperative diagnosis: Anesthesia: MAC Procedure: After informed consent was obtained from the patient was brought into the endoscopy unit and IV sedation was administered by anesthesia under continuous monitoring. Initially upper endoscopy was done. The Olympus GF 160 video endoscope was inserted inserted into the mouth and esophagus intubated without any difficulty and was gradually advanced into the stomach and duodenum and carefully examined. The bulb and second part of the duodenum appeared normal. Abscesses were done from the duodenum to rule out celiac disease. The scope was then withdrawn into the stomach adequately insufflated with air and upon careful examination the antrum and body appeared normal. In the proximal body the stomach there was a 5 mm ulceration identified just below the hiatal hernial sac and biopsies were done from this area. The cardia and fundus appeared normal. The scope was then withdrawn into the esophagus. Under size hiatal hernia noted. The GE junction was located at 34 cm to the incisors. It appeared regular with no erythema erosions or ulcerations. Rest of the esophagus appeared normal. Patient tolerated the procedure well. At this time the patient continued to remain sedation. Initial digital rectal examination was normal. Olympus CF 160 video colonoscope was then inserted into the rectum and gradually advanced to the cecum with mild to moderate difficulty. Careful examination was performed as the scope was gradually being withdrawn. The prep was excellent. The cecum, ascending colon, transverse colon, descending colon, sigmoid colon and rectum appeared normal. Scattered sigmoid diverticulosis seen. The Retroflexion was performed in the rectum and no lesions were noted. Patient tolerated the procedure well. Impression: 1.Upper endoscopy revealed moderate size hiatal hernia and 5 mm proximal gastric ulcer status post biopsy 2.Colonoscopy reveals scattered sigmoid diverticulosis but no evidence of colorectal neoplasia Recommendations: Findings of this examination were discussed with the patient. she was advised to follow with the biopsy results. She'll be started on Protonix 40 mg daily and was advised to avoid NSAIDs. Start iron supplements twice daily and monitor CBC periodically. She can resume Coumadin today.
[2020-01-01 15:10] VITALS: BP 146/74; PULSE 92; RESP 18; TEMP 98.1
== END 2020-01-01 18:00 | disposition home or self-care (01) ==
LOC: EC 20:24 → 3NCARDOBS 22:27 → 1SOBS 12-31 05:58 → 6NMEDSUR 12-31 07:52 → UNDODISOB 12-31 12:13 → 5NMEDONC 12-31 19:30 → UNDODISOB 01-01 14:07
PROVIDERS: ADMIT Internal Medicine; ATTEND Internal Medicine
DX: K25.9 Gastric ulcer, unspecified as acute or chronic, without hemorrhage or perforation (principal); K57.30 Diverticulosis of large intestine without perforation or abscess without bleeding; K44.9 Diaphragmatic hernia without obstruction or gangrene; D50.9 Iron deficiency anemia, unspecified; R19.5 Other fecal abnormalities; R06.02 Shortness of breath; R00.0 Tachycardia, unspecified; Z86.711 Personal history of pulmonary embolism; Z86.718 Personal history of other venous thrombosis and embolism; Z88.8 Allergy status to other drugs, medicaments and biological substances; Z20.828 Contact with and (suspected) exposure to other viral communicable diseases; Z79.01 Long term (current) use of anticoagulants; K21.9 Gastro-esophageal reflux disease without esophagitis; I10 Essential (primary) hypertension; J44.9 Chronic obstructive pulmonary disease, unspecified; K52.9 Noninfective gastroenteritis and colitis, unspecified; Z90.722 Acquired absence of ovaries, bilateral; Z98.890 Other specified postprocedural states; Z98.891 History of uterine scar from previous surgery; Z79.899 Other long term (current) drug therapy; Z91.041 Radiographic dye allergy status; Z88.0 Allergy status to penicillin; Z91.048 Other nonmedicinal substance allergy status
CPT/HCPCS: 96366; 96375; 36430; 96361 ×2; 96365; 96367; 99285; 36415; 93005; 86900; 86901; 85379; 88305; 80053 ×2; 82728; 83540; 83550; 83605; 84484; 85025 ×3; 85610 ×3; 85730; 86850; 86920; 86870; 86880; 82272; 87502; 87635; 71046; 45378; 43239; G0378 ×5; P9016; J2250; J3430 ×2; J2405; J2001; J3010; J2916 ×2; J2704

== ENCOUNTER 2021-03-22 11:06 | Emergency (ER) | payer MEDICARE ==
[2021-03-22 11:46] LABS: Basophils % (A) 0 %; Eosinophils # (A) 0.2 k/uL (0-0.7); Eosinophils % (A) 3 %; HCT 38.9 % (34.0-46.0); HGB 12.6 gm/dL (11.4-16.0); Lymphocytes # (A) 1.6 k/uL (1.0-4.8); Lymphocytes % (A) 21 %; MCH 28.4 pg (25.0-35.0); MCHC 32.3 g/dL (31.0-37.0); MCV 87.8 fL (80.0-100.0); Mean Platelet Volume 7.5; Monocytes # (A) 0.4 k/uL (0-1.0); Monocytes % (A) 6 %; Neutrophils # (A) 5.3 k/uL (1.3-7.7); Neutrophils % (A) 69 %; Platelet Count 225 k/uL (150-450); RBC 4.43 m/uL (3.80-5.40); RDW 13.6 % (11.5-15.5); WBC 7.6 k/uL (3.8-10.6)
[2021-03-22 12:24] LABS: Prothrombin Time 65.8 sec (9.0-12.0)
[2021-03-22 12:31] LABS: INR 6.5 (<1.2)
--- NOTE | 2021-03-22 12:52 | ED ---
General Adult HPI - General Chief complaint: Recheck/Abnormal Lab/Rx Stated complaint: Abnormal Labs/Recheck Time Seen by Provider: 03/22/21 11:11 Source: patient, RN notes reviewed Mode of arrival: ambulatory Limitations: no limitations - History of Present Illness Initial comments: 70-year-old female presents emergency from chief complaint of abnormal lab. Patient states her INR is elevated per her PCP states she had regular laboratory yesterday she had a recent medication change one month ago in which they doubled her Coumadin. She states she takes Coumadin for history of blood clots states this was over one to 2 years ago. She is asymptomatic denies any oral bleeding, no nosebleeding denies any abdominal pain no rectal bleeding, melena no hematemesis copremesis. She states she has no abnormal bruising. She states she has no complaints she is unsure why her doctor sent to her to the hospital otherwise. - Related Data Home Medications Medication Instructions Recorded Confirmed Albuterol Sulfate [Ventolin HFA] 2 puff INHALATION RT-Q6H PRN 12/30/19 03/22/21 Warfarin Sodium 3 mg PO SUTUTHSA 12/30/19 03/22/21 Fluticasone/Salmeterol [Advair 1 puff INHALATION RT-BID 03/22/21 03/22/21 250-50 Diskus] Warfarin Sodium 6 mg PO MOWEFR 03/22/21 03/22/21 Allergies Allergy/AdvReac Type Severity Reaction Status Date / Time Iodinated Contrast Media Allergy Rash/Hives Verified 03/22/21 11:59 [Iodinated Contrast Media - IV Dye] Iodine and Iodide Containing Allergy Rash/Hives Verified 03/22/21 11:59 Produc Penicillins Allergy Rash/Hives Verified 03/22/21 11:59 Review of Systems ROS Statement: Those systems with pertinent positive or pertinent negative responses have been documented in the HPI. ROS Other: All systems not noted in ROS Statement are negative. Past Medical History Past Medical History: Asthma, COPD, GERD/Reflux, Hypertension Additional Past Medical History / Comment(s): hx- hiatal hernia, colitis and loose watery stools, DVTs with PE, History of Any Multi-Drug Resistant Organisms: None Reported Past Surgical History: Adenoidectomy, Breast Surgery, Section, Tonsillectomy Additional Past Surgical History / Comment(s): alia oophorectomy, Past Anesthesia/Blood Transfusion Reactions: Motion Sickness Past Psychological History: No Psychological Hx Reported Smoking Status: Never smoker Past Alcohol Use History: Occasional Past Drug Use History: None Reported - Past Family History Mother Family Medical History: No Reported History General Exam Limitations: no limitations General appearance: alert, in no apparent distress Head exam: Present: atraumatic, normocephalic, normal inspection Eye exam: Present: normal appearance, PERRL, EOMI. Absent: scleral icterus, conjunctival injection, periorbital swelling ENT exam: Present: normal exam, normal oropharynx, mucous membranes moist, TM's normal bilaterally Neck exam: Present: normal inspection, full ROM. Absent: tenderness, meningismus, lymphadenopathy Respiratory exam: Present: normal lung sounds bilaterally. Absent: respiratory distress, wheezes, rales, rhonchi, stridor Cardiovascular Exam: Present: regular rate, normal rhythm, normal heart sounds. Absent: systolic murmur, diastolic murmur, rubs, gallop, clicks GI/Abdominal exam: Present: soft, normal bowel sounds. Absent: distended, tenderness, guarding, rebound, rigid Neurological exam: Present: alert, oriented X3, CN II-XII intact, reflexes normal. Absent: motor sensory deficit Skin exam: Present: warm, dry, intact, normal color. Absent: rash Course Vital Signs 03/22/21 11:07 Temperature 98.3 F Pulse Rate 107 H Respiratory 20 Rate Blood Pressure 184/48 O2 Sat by Pulse 98 Oximetry Medical Decision Making - Medical Decision Making Patient is asymptomatic has no signs of bleeding, has a normal exam patient states she feels completely her usual self. INR 6.5. Patient is advised to hold her Coumadin for 2 days will have her recheck on the third day by her PCP and medication adjustment by PCP. Patient understands that she'll return for any worsening changing symptoms or any other concerns. - Lab Data Result diagrams: 03/22/21 11:35 Lab Results 03/22/21 03/22/21 Range/Units 11:35 11:35 WBC 7.6 (3.8-10.6) k/uL RBC 4.43 (3.80-5.40) m/uL Hgb 12.6 (11.4-16.0) gm/dL Hct 38.9 (34.0-46.0) % MCV 87.8 (80.0-100.0) fL MCH 28.4 (25.0-35.0) pg MCHC 32.3 (31.0-37.0) g/dL RDW 13.6 (11.5-15.5) % Plt Count 225 (150-450) k/uL MPV 7.5 Neutrophils % 69 % Lymphocytes % 21 % Monocytes % 6 % Eosinophils % 3 % Basophils % 0 % Neutrophils # 5.3 (1.3-7.7) k/uL Lymphocytes # 1.6 (1.0-4.8) k/uL Monocytes # 0.4 (0-1.0) k/uL Eosinophils # 0.2 (0-0.7) k/uL Basophils # 0.0 (0-0.2) k/uL PT 65.8 H (9.0-12.0) sec INR 6.5 H* (<1.2) APTT 55.0 H (22.0-30.0) sec Disposition Clinical Impression: Warfarin-induced coagulopathy Disposition: HOME SELF-CARE Condition: Stable Instructions (If sedation given, give patient instructions): Warfarin (By gray ) Additional Instructions: Please hold Coumadin for 2 days and have her recheck of INR. Please return to the Emergency Department if symptoms worsen or any other concerns. Is patient prescribed a controlled substance at d/c from ED?: No Referrals: Enrique Rios MD [Primary Care Provider] - 1-2 days Time of Disposition: 12:51
[2021-03-22 13:13] VITALS: BP 137/79; PULSE 87; RESP 16; TEMP 98
== END 2021-03-22 13:12 | disposition home or self-care (01) ==
LOC: EC 11:06
DX: D68.32 Hemorrhagic disorder due to extrinsic circulating anticoagulants (principal); J44.9 Chronic obstructive pulmonary disease, unspecified; I10 Essential (primary) hypertension; Z91.041 Radiographic dye allergy status; Z88.0 Allergy status to penicillin
CPT/HCPCS: 36415; 85025; 85610; 85730; 99283

== ENCOUNTER → 2021-11-08 | Outpatient (CLI) | payer SELFPAY | END | disposition home or self-care (01) | LOC: LABWHC1 16:07 | PROVIDERS: ATTEND Family Medicine | DX: Z53.9 Procedure and treatment not carried out, unspecified reason (principal) ==

== ENCOUNTER → 2021-12-20 | Outpatient (CLI) | payer MEDICARE | END | disposition home or self-care (01) | LOC: LABWHC1 15:45 | PROVIDERS: ATTEND Family Medicine | DX: I26.99 Other pulmonary embolism without acute cor pulmonale (principal) | CPT/HCPCS: 36415; 85730 ==

== ENCOUNTER 2022-05-13 11:14 | Emergency (ER) | payer MEDICARE ==
[2022-05-13 11:21] VITALS: RESP 18; TEMP 98.1
[2022-05-13] MEDS ORDERED: MECLIZINE 12.5 MG TAB PO STA ×2 (12:10→12:30)
--- NOTE | 2022-05-13 12:15 | ED ---
Dizziness HPI - General Chief Complaint: Dizziness Stated Complaint: Dizziness Time Seen by Provider: 05/13/22 11:37 Source: patient, RN notes reviewed, old records reviewed Mode of arrival: wheelchair Limitations: no limitations - History of Present Illness Initial Comments: This is a nontoxic-appearing 71-year-old female that presents to the emergency room with complaints of dizziness and sinus congestion. Patient states she's had similar episodes of dizziness in the past with sinus infection. Does have frontal sinus pressure and pressure behind her eyes. She denies any fevers. No head injuries. Does take Coumadin daily for history of PE and DVT. MD Complaint: dizziness -: days(s) (1) Timing: gradual onset Description: "room spinning" History of Same: Yes History of Trauma: No Improves With: remaining still Worsens With: movement Associated Symptoms: other (Sinus congestion) - Related Data Home Medications Medication Instructions Recorded Confirmed Albuterol Sulfate [Ventolin HFA] 2 puff INHALATION RT-Q6H PRN 12/30/19 03/22/21 Warfarin Sodium 3 mg PO SUTUTHSA 12/30/19 03/22/21 Fluticasone Propion/Salmeterol 1 puff INHALATION RT-BID 03/22/21 03/22/21 [Advair 250-50 Diskus] Warfarin Sodium 6 mg PO MOWEFR 03/22/21 03/22/21 Previous Rx's Medication Instructions Recorded Meclizine [Antivert] 25 mg PO TID PRN #15 tab 05/13/22 Allergies Allergy/AdvReac Type Severity Reaction Status Date / Time Iodinated Contrast Media Allergy Rash/Hives Verified 05/13/22 11:21 [Iodinated Contrast Media - IV Dye] Iodine and Iodide Containing Allergy Rash/Hives Verified 05/13/22 11:21 Produc Penicillins Allergy Rash/Hives Verified 05/13/22 11:21 Review of Systems ROS Statement: Those systems with pertinent positive or pertinent negative responses have been documented in the HPI. ROS Other: All systems not noted in ROS Statement are negative. Past Medical History Past Medical History: Asthma, COPD, GERD/Reflux, Pulmonary Embolus (PE) Additional Past Medical History / Comment(s): hx- hiatal hernia, colitis and loose watery stools, DVTs with PE, History of Any Multi-Drug Resistant Organisms: None Reported Past Surgical History: Adenoidectomy, Breast Surgery, Section, Tonsillectomy Additional Past Surgical History / Comment(s): alia oophorectomy, Past Anesthesia/Blood Transfusion Reactions: Motion Sickness Past Psychological History: No Psychological Hx Reported Smoking Status: Never smoker Past Alcohol Use History: Occasional Past Drug Use History: None Reported - Past Family History Mother Family Medical History: No Reported History General Exam Limitations: no limitations General appearance: alert, in no apparent distress Head exam: Present: atraumatic, normocephalic, normal inspection Eye exam: Present: normal appearance, EOMI. Absent: scleral icterus, conjunctival injection, nystagmus, periorbital swelling, periorbital tenderness ENT exam: Present: mucous membranes moist Neck exam: Present: full ROM. Absent: tenderness, meningismus Respiratory exam: Present: normal lung sounds bilaterally. Absent: respiratory distress, accessory muscle use Cardiovascular Exam: Present: regular rate, normal rhythm GI/Abdominal exam: Present: soft. Absent: distended, guarding, rigid Extremities exam: Present: normal capillary refill. Absent: pedal edema Back exam: Absent: tenderness, CVA tenderness (R), CVA tenderness (L), paraspinal tenderness, vertebral tenderness, rash noted Neurological exam: Present: alert, oriented X3, CN II-XII intact Expanded Patient oriented to: Present: person, place, time Speech: Present: fluid speech Cranial nerves: EOM's Intact: Normal Motor strength exam: RUE: 5, LUE: 5, RLE: 5, LLE: 5 Eye Response: (4) open spontaneously Motor Response: (6) obeys commands Verbal Response: (5) oriented [place] Total: 15 Psychiatric exam: Present: normal affect, normal mood Skin exam: Present: warm, dry, normal color. Absent: cyanosis, diaphoretic, petechiae, pallor Course Vital Signs 05/13/22 05/13/22 05/13/22 11:18 11:39 11:40 Temperature 98.1 F Pulse Rate 101 H Respiratory 18 Rate Blood Pressure 157/82 137/75 137/75 O2 Sat by Pulse 97 96 96 Oximetry 05/13/22 05/13/22 05/13/22 11:41 11:50 12:00 Temperature 98.1 F Pulse Rate 91 Respiratory Rate Blood Pressure 137/75 137/75 137/75 O2 Sat by Pulse 96 95 95 Oximetry 05/13/22 05/13/22 05/13/22 12:10 12:20 12:30 Temperature Pulse Rate Respiratory Rate Blood Pressure 137/75 137/75 137/75 O2 Sat by Pulse 96 95 95 Oximetry 05/13/22 05/13/22 05/13/22 12:40 13:00 13:10 Temperature Pulse Rate Respiratory Rate Blood Pressure 137/75 137/75 137/75 O2 Sat by Pulse Oximetry 05/13/22 05/13/22 05/13/22 13:20 13:30 13:40 Temperature Pulse Rate Respiratory Rate Blood Pressure 137/75 137/75 137/75 O2 Sat by Pulse Oximetry 05/13/22 05/13/22 05/13/22 13:50 14:00 14:10 Temperature Pulse Rate Respiratory Rate Blood Pressure 137/75 137/75 137/75 O2 Sat by Pulse Oximetry 05/13/22 05/13/22 05/13/22 14:20 14:30 14:40 Temperature Pulse Rate Respiratory Rate Blood Pressure 137/75 137/75 137/75 O2 Sat by Pulse Oximetry 05/13/22 05/13/22 14:50 15:02 Temperature 98.1 F Pulse Rate 86 Respiratory Rate Blood Pressure 137/75 137/80 O2 Sat by Pulse 97 Oximetry - Reevaluation(s) Reevaluation #1: 05/13/22 13:22 Patient developed some diarrhea while awaiting the emergency room. Viral swab was performed Time: 13:22 EKG Findings - EKG Results: EKG: sinus rhythm (Sinus rhythm with a ventricular rate of 95, IA interval 0.195, QRS 0.73, QTC 0.397, normal axis) Medical Decision Making - Medical Decision Making EKG shows sinus rhythm with a ventricular rate of 95, IA interval 0.195, QRS 0.73, QTC 0.397, normal axis. No change compared to old 12/30/2019 Vital signs are stable patient afebrile. No head trauma, no focal neurological deficits. Influenza coronavirus an RSV swab negative CT brain shows no acute intracranial process. Soft tissue swelling left occipital region. Mucosal thickening of the maxillary and ethmoid air cells consistent with chronic sinusitis. CT of the sinuses shows opacification of the maxillary sinuses with obstruction of the ostiomeatal unit regions. Note is made of prior uncinectomies. Mucosal thickening is within the right frontal anterior and mid right ethmoid air cell regions Patient states does have a history of chronic sinusitis and does use Flonase daily. Patient was feeling better after Antivert and Reglan. No further dizziness. She was given a prescription for Antivert directed to continue her Flonase and follow-up with her primary care doctor this week. Return with any new or concerning symptoms. She is agreeable to this plan of care. Patient has a history of asthma, COPD, GERD and PE on coumadin. Case discussed with Dr. Spencer Was pt. sent in by a medical professional or institution (, PA, HOG TRADER, urgent care, hospital, or residential...) When possible be specific @ -No Did you speak to anyone other than the patient for history (EMS, parent, family, police, friend...)? What history was obtained from this source @ -No Did you review nursing and triage notes (agree or disagree)? Why? @ -I reviewed and agree with nursing and triage notes Were old charts reviewed (outside hosp., previous admission, EMS record, old EKG, old radiological studies, urgent care reports/EKG's, residential records)? Report findings @ -Previous EKG Differential Diagnosis (chest pain, altered mental status, abdominal pain women, abdominal pain men, vaginal bleeding, weakness, fever, dyspnea, syncope, headache, dizziness, GI bleed, back pain, seizure, CVA, palpatations, mental health, musculoskeletal)? @ -Differential Dizziness: Benign paroxysmal positional Vertigo, Menieres disease, otitis media, acoustic neuroma, vertebrobasilar insufficiency, cerebellar stroke, encephalitis, hypovolemic, arrhythmia, coronary artery syndrome, anemia, this is not meant to be an all-inclusive list EKG interpreted by me (3pts min.). @ -As above X-rays interpreted by me (1pt min.). @ -None done CT interpreted by me (1pt min.). @ -no U/S interpreted by me (1pt. min.). @ -None done What testing was considered but not performed or refused? (CT, X-rays, U/S, labs)? Why? @ -None What meds were considered but not given or refused? Why? @ -Antibiotics were considered for sinusitis however patient's symptoms less than 10 days and she is afebrile, minimal sinus pain Did you discuss the management of the patient with other professionals (professionals i.e. , PA, HOG TRADER, lab, RT, psych nurse, social scientist, microsoft developer, teacher, welfare officer, case operator)? Give summary @ -No Was smoking cessation discussed for >3mins.? @ -No Was critical care preformed (if so, how long)? @ -No Were there social determinants of health that impacted care today? How? (Homelessness, low income, unemployed, alcoholism, drug addiction, t ransportation, low edu. Level, literacy, decrease access to med. care, nursing home, rehab)? @ -No Was there de-escalation of care discussed even if they declined (Discuss DNR or withdrawal of care, Hospice)? DNR status @ -No What co-morbidities impacted this encounter? (DM, HTN, Smoking, COPD, CAD, Cancer, CVA, ARF, Chemo, Hep., AIDS, mental health diagnosis, sleep apnea, morbid obesity)? @ -Asthma, COPD, GERD and pulmonary embolism/dvt on Coumadin Was patient admitted / discharged? Hospital course, mention meds given and route, prescriptions, significant lab abnormalities, going to OR and other pertinent info. @ -Discharged Undiagnosed new problem with uncertain prognosis? @ -No Drug Therapy requiring intensive monitoring for toxicity (Heparin, Nitro, Insulin, Cardizem)? @ -No Were any procedures done? @ -No Diagnosis/symptom? @ -Chronic sinusitis, peripheral vertigo resolved Acute, or Chronic, or Acute on Chronic? @ -Acute and acute on chronic sinusitis Uncomplicated (without systemic symptoms) or Complicated (systemic symptoms)? @ -Uncomplicated Side effects of treatment? @ -No Exacerbation, Progression, or Severe Exacerbation? @ -No Poses a threat to life or bodily function? How? (Chest pain, [place], [place], pneumonia, PE, COPD, DKA, ARF, appy, cholecystitis, CVA, Diverticulitis, Homicidal, Suicidal, threat to staff... and all critical care pts) @ -No - Lab Data Lab Results 05/13/22 Range/Units 13:20 Influenza Type A (PCR) Not Detected (Not Detectd) Influenza Type B (PCR) Not Detected (Not Detectd) RSV (PCR) Not Detected (Not Detectd) SARS-CoV-2 (PCR) Not Detected (Not Detectd) Disposition Clinical Impression: Vertigo, Chronic sinusitis Disposition: HOME SELF-CARE Condition: Good Instructions (If sedation given, give patient instructions): Sinusitis (ED), Dizziness (ED) Additional Instructions: Take Antivert as needed for dizziness. Continue Flonase. Follow-up with her primary care doctor this week. Prescriptions: Meclizine [Antivert] 25 mg PO TID PRN #15 tab PRN Reason: Vertigo Is patient prescribed a controlled substance at d/c from ED?: No Referrals: Enrique Rios MD [Primary Care Provider] - 1-2 days Time of Disposition: 15:04
[2022-05-13] MEDS ORDERED: METOCLOPRAMIDE 10 MG TAB PO STA (12:30)
[2022-05-13] MEDS ORDERED: MECLIZINE 25 MG TAB PO STA (12:34)
--- NOTE | 2022-05-13 13:59 | CT ---
EXAMINATION TYPE: CT sinus wo con DATE OF EXAM: 05/13/2022 COMPARISON: None HISTORY: Dizziness. CT DLP: 1138.4 mGycm CONTRAST: 0 mL of Isovue 300 The paranasal sinuses are examined in the axial plane at 2 mm thick sections. Reconstructed images i n the coronal plane were obtained. There is dental amalgam scatter artifact There is opacification of the bilateral maxillary sinuses. Some soft tissue thickening is through the right nasal passage. Prior uncinate ectomy is present bilaterally. There is opacification through an terior mid right ethmoid air cell regions. The sphenoid sinus appears clear. There is mucosal thicken ing within the right frontal sinus. The ethmoid air cells are clear. The sphenoid sinuses are clear . The frontal sinuses are clear. The septum is evaluated. There is septal deviation to the right. The ostiomeatal unit regions are obstructed. IMPRESSIONS: 1. Opacification of the maxillary sinuses with obstruction of the ostiomeatal unit regions. Note is made of prior uncinectomies. 2. Mucosal thickening is within the right frontal anterior and mid right ethmoid air cell regions.
--- NOTE | 2022-05-13 14:01 | CT ---
EXAMINATION TYPE: CT brain wo con DATE OF EXAM: 05/13/2022 COMPARISON: 09/15/2011 INDICATION: Dizziness. DLP: 1138.4 mGycm, Automated exposure control for dose reduction was used. CONTRAST: None CT of the brain is performed utilizing 3 mm thick sections through the posterior fossa and 3 mm thick sections through the remaining calvarium. Study is performed within 24 hours of arrival to the hosp ital. No abnormal hyperdensity is present to suggest an acute intracranial hemorrhage. No mass lesion is evident. No acute infarcts are evident. Ventricles and sulci are appropriate for the patient age. Mucosal thickening is within the bilateral maxillary sinuses. Some mucosal thickening is within right ethmoid air cells. Frontal and sphenoid sinuses are clear. There is under pneumatization of the mast oid air cells. Soft tissue swelling is over the left occipital region. No acute fractures are evident. Spina bifida occulta of C1 is present. IMPRESSIONS: 1. No acute intracranial process. Follow-up MRI can be performed as clinically indicated. 2. Soft tissue swelling left occipital region. 3. Mucosal thickening within maxillary and ethmoid air cells. Correlate for chronic sinusitis.
[2022-05-13 15:04] VITALS: BP 137/80; PULSE 86
== END 2022-05-13 15:32 | disposition home or self-care (01) ==
LOC: EC 11:14
DX: R42 Dizziness and giddiness (principal); J32.9 Chronic sinusitis, unspecified; J44.9 Chronic obstructive pulmonary disease, unspecified; Z79.01 Long term (current) use of anticoagulants; Z79.51 Long term (current) use of inhaled steroids; Z88.0 Allergy status to penicillin; Z88.8 Allergy status to other drugs, medicaments and biological substances; Z20.822 Contact with and (suspected) exposure to COVID-19
CPT/HCPCS: 70450; 70486; 87636; 99284

== ENCOUNTER 2022-12-07 06:14 | Inpatient (IN) | payer MEDICARE ==
[2022-12-07] MEDS ORDERED: MECLIZINE 12.5 MG TAB PO STA (06:54)
[2022-12-07] MEDS ORDERED: DIPH,PERTUS(ACELL)TETVAC-LF 0.5 ML VIAL IM ONE (06:54)
[2022-12-07] MEDS ORDERED: ONDANSETRON 4 MG/2 ML VIAL IVP STA (07:17)
[2022-12-07] MEDS ORDERED: HYDROmorphone 0.5 MG/0.5 ML SYRINGE IVP STA (07:17)
[2022-12-07 07:19] LABS: Anisocytosis Slight; Basophils % (A) 0 %; Eosinophils # (A) 0.3 k/uL (0-0.7); Eosinophils % (A) 4 %; Hypochromasia Marked; Lymphocytes % (A) 13 %; MCHC 29.1 g/dL (31.0-37.0); MCV 65.3 fL (80.0-100.0); Mean Platelet Volume 7.4; Microcytosis Marked; Monocytes # (A) 0.3 k/uL (0-1.0); Monocytes % (A) 4 %; Neutrophils # (A) 6.1 k/uL (1.3-7.7); Neutrophils % (A) 78 %; Platelet Count 408 k/uL (150-450); Poikilocytosis Slight; RBC 3.52 m/uL (3.80-5.40); RDW 17.9 % (11.5-15.5); WBC 7.9 k/uL (3.8-10.6)
--- NOTE | 2022-12-07 07:34 | ED ---
Fall HPI - General Chief Complaint: Fall Stated Complaint: fall Time Seen by Provider: 12/07/22 06:38 Source: EMS Mode of arrival: EMS - History of Present Illness Initial Comments: Patient is a 72-year-old female who presents the emergency department for fall. Patient was walking to the bathroom this morning when she felt dizzy as if the room was spinning. Patient fell and hit her head on the wall. 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 She did not lose consciousness. She has mild headache with laceration to the scalp. Last tetanus over 10 years ago. She denies chest pain states she does feel a little short of breath. She has had a dry cough for the past couple days. No urinary symptoms or change in bowel habits. Patient has nausea no vomiting. - Related Data Home Medications Medication Instructions Recorded Confirmed Albuterol Sulfate [Ventolin HFA] 2 puff INHALATION RT-Q6H PRN 12/30/19 03/22/21 Warfarin Sodium 3 mg PO SUTUTHSA 12/30/19 03/22/21 Fluticasone Propion/Salmeterol 1 puff INHALATION RT-BID 03/22/21 03/22/21 [Advair 250-50 Diskus] Warfarin Sodium 6 mg PO MOWEFR 03/22/21 03/22/21 Previous Rx's Medication Instructions Recorded Meclizine [Antivert] 25 mg PO TID PRN #15 tab 05/13/22 Allergies Allergy/AdvReac Type Severity Reaction Status Date / Time Iodinated Contrast Media Allergy Rash/Hives Verified 05/13/22 11:21 [Iodinated Contrast Media - IV Dye] Iodine and Iodide Containing Allergy Rash/Hives Verified 05/13/22 11:21 Produc Penicillins Allergy Rash/Hives Verified 05/13/22 11:21 Review of Systems ROS Statement: Those systems with pertinent positive or pertinent negative responses have been documented in the HPI. ROS Other: All systems not noted in ROS Statement are negative. Past Medical History Past Medical History: Asthma, COPD, GERD/Reflux, Pulmonary Embolus (PE) Additional Past Medical History / Comment(s): hx- hiatal hernia, colitis and loose watery stools, DVTs with PE, History of Any Multi-Drug Resistant Organisms: None Reported Past Surgical History: Adenoidectomy, Breast Surgery, Section, Tonsillectomy Additional Past Surgical History / Comment(s): alia oophorectomy, Past Anesthesia/Blood Transfusion Reactions: Motion Sickness Past Psychological History: No Psychological Hx Reported Smoking Status: Never smoker Past Alcohol Use History: Occasional Past Drug Use History: None Reported - Past Family History Mother Family Medical History: No Reported History General Exam Limitations: no limitations General appearance: alert Head exam: Present: normocephalic. Absent: atraumatic (2 cm lac posterior scalp bleeding minimal), normal inspection Eye exam: Present: normal appearance, PERRL, EOMI. Absent: scleral icterus, conjunctival injection, periorbital swelling Respiratory exam: Present: normal lung sounds bilaterally. Absent: respiratory distress, wheezes, rales, rhonchi, stridor Cardiovascular Exam: Present: regular rate, normal rhythm, normal heart sounds. Absent: systolic murmur, diastolic murmur, rubs, gallop, clicks Neurological exam: Present: alert Expanded Speech: Present: fluid speech Cranial nerves: EOM's Intact: Normal, Gag Reflex: Normal, Tongue Deviation: Normal, Facial Sensation: Normal, Facial Palsy with Forehead Movement: Normal, Facial Palsy without Forehead Movement: Normal Cerebellar function: Finger to Nose: Normal, Heel to Herrera: Normal Upper motor neuron: [place] Neglect: Normal Sensory exam: Upper Extremity Light Touch: Normal, Lower Extremity Light Touch: Normal Motor strength exam: RUE: 5, LUE: 5, RLE: 5, LLE: 5 Psychiatric exam: Present: normal affect, normal mood Skin exam: Present: warm, dry, intact, normal color. Absent: rash Course Vital Signs 12/07/22 12/07/22 06:41 08:29 Temperature 98.2 F Pulse Rate 90 93 Respiratory 18 22 Rate Blood Pressure 162/78 166/80 O2 Sat by Pulse 98 95 Oximetry Procedures - Laceration Laceration #1 Indication: laceration Site: scalp Description: irregular Patient Tolerated Procedure: well, no complications Additional Comments: 3 valerie Medical Decision Making - Medical Decision Making EKG taken at 07:15, sinus rhythm no ST elevation, Ventricular rate 93, VT interval 195, QRS duration 77, QTC 394 Was pt. sent in by a medical professional or institution (, PA, DRESS CUTTER, urgent care, hospital, or snf...) When possible be specific @ -No Did you speak to anyone other than the patient for history (EMS, parent, family, police, friend...)? What history was obtained from this source @ -No Did you review nursing and triage notes (agree or disagree)? Why? @ -I reviewed and agree with nursing and triage notes Were old charts reviewed (outside hosp., previous admission, EMS record, old EKG, old radiological studies, urgent care reports/EKG's, snf records)? Report findings @ -No old charts were reviewed Differential Diagnosis (chest pain, altered mental status, abdominal pain women, abdominal pain men, vaginal bleeding, weakness, fever, dyspnea, syncope, headache, dizziness, GI bleed, back pain, seizure, CVA, palpatations, mental health)? @ -not applicable EKG interpreted by me (3pts min.). @ -As above X-rays interpreted by me (1pt min.). @ -None done CT interpreted by me (1pt min.). @ -None done U/S interpreted by me (1pt. min.). @ -None done What testing was considered but not performed or refused? (CT, X-rays, U/S, labs)? Why? @ -None What meds were considered but not given or refused? Why? @ -None Did you discuss the management of the patient with other professionals (professionals i.e. , PA, DRESS CUTTER, lab, RT, psych nurse, social services specialist, commutator repairer, teacher, hospital chief financial officer, social work case manager)? Give summary @ -No Was smoking cessation discussed for >3mins.? @ -No Was critical care preformed (if so, how long)? @ -No Were there social determinants of health that impacted care today? How? (Homelessness, low income, unemployed, alcoholism, drug addiction, transportation, low edu. Level, literacy, decrease access to med. care, care home, rehab)? @ -No Was there de-escalation of care discussed even if they declined (Discuss DNR or withdrawal of care, Hospice)? DNR status @ -No What co-morbidities impacted this encounter? (DM, HTN, Smoking, COPD, CAD, Cancer, CVA, ARF, Chemo, Hep., AIDS, mental health diagnosis, sleep apnea, morbid obesity)? @ -None Was patient admitted / discharged? Hospital course, mention meds given and route, prescriptions, significant lab abnormalities, going to OR and other pertinent info. @ -72-year-old presenting after fall. Patient is hemodynamically stable. No neurological deficit. CT of the brain and C-spine interpreted by myself showing no acute intracranial process, no cervical spine fracture dislocation. Chest x- ray interpreted by myself showing cardiomegaly with pulmonary venous congestion. There is no pedal edema. BNP and troponin are within normal limits. EKG shows sinus rhythm with no evidence of acute ischemia. Hemoglobin is very low at 6.7. INR 2.9. Patient has history of iron deficiency anemia states she has not been taking her iron pills because they make her feel sick. She denies history of GI bleed no melanotic stools. Denies any other abnormal bleeding. Patient declines a rectal exam states she has had a normal scope in the past. One unit of packed red cells was given laceration was approximated with 3 valerie and tetanus updated. I did discuss case with Dr. Jauregui who does not want coumadin reversed. Patient admitted for further evaluation and management Undiagnosed new problem with uncertain prognosis? @ -No Drug Therapy requiring intensive monitoring for toxicity (Heparin, Nitro, Insulin, Cardizem)? @ -No Were any procedures done? @ -lac Diagnosis/symptom? @ -fall, head inury, anemia Acute, or Chronic, or Acute on Chronic? @ -acute Uncomplicated (without systemic symptoms) or Complicated (systemic symptoms)? @ -uncomplicated Side effects of treatment? @ -No Exacerbation, Progression, or Severe Exacerbation? @ -No Poses a threat to life or bodily function? How? (Chest pain, [place], [place], pneumonia, PE, COPD, DKA, ARF, appy, cholecystitis, CVA, Diverticulitis, Homicidal, Suicidal, threat to staff... and all critical care pts) @ -yes Dr. Metzger is my attending - Lab Data Result diagrams: 12/07/22 07:01 12/07/22 07:01 Lab Results 12/07/22 12/07/22 12/07/22 Range/Units 07:01 07:01 07:01 WBC 7.9 (3.8-10.6) k/uL RBC 3.52 L (3.80-5.40) m/uL Hgb 6.7 L* (11.4-16.0) gm/dL Hct 23.0 L (34.0-46.0) % MCV 65.3 L (80.0-100.0) fL MCH 19.0 L (25.0-35.0) pg MCHC 29.1 L (31.0-37.0) g/dL RDW 17.9 H (11.5-15.5) % Plt Count 408 (150-450) k/uL MPV 7.4 Neutrophils % 78 % Lymphocytes % 13 % Monocytes % 4 % Eosinophils % 4 % Basophils % 0 % Neutrophils # 6.1 (1.3-7.7) k/uL Lymphocytes # 1.0 (1.0-4.8) k/uL Monocytes # 0.3 (0-1.0) k/uL Eosinophils # 0.3 (0-0.7) k/uL Basophils # 0.0 (0-0.2) k/uL Hypochromasia Marked Poikilocytosis Slight Anisocytosis Slight Microcytosis Marked PT 29.0 H (10.0-12.5) sec INR 2.9 H (<1.2) APTT 30.1 H (22.0-30.0) sec Sodium 139 (137-145) mmol/L Potassium 3.9 (3.5-5.1) mmol/L Chloride 107 (98-107) mmol/L Carbon Dioxide 25 (22-30) mmol/L Anion Gap 7 mmol/L BUN 20 H (7-17) mg/dL Creatinine 0.74 (0.52-1.04) mg/dL Est GFR (CKD-EPI)AfAm >90 (>60 ml/min/1.73 sqM) Est GFR (CKD-EPI)NonAf 82 (>60 ml/min/1.73 sqM) Glucose 104 H (74-99) mg/dL Calcium 8.8 (8.4-10.2) mg/dL Magnesium 2.2 (1.6-2.3) mg/dL Total Bilirubin 0.4 (0.2-1.3) mg/dL AST 26 (14-36) U/L ALT 20 (4-34) U/L Alkaline Phosphatase 72 (38-126) U/L Troponin I (0.000-0.034) ng/mL NT-Pro-B Natriuret Pep 217 pg/mL Total Protein 7.0 (6.3-8.2) g/dL Albumin 3.8 (3.5-5.0) g/dL Influenza Type A (PCR) (Not Detectd) Influenza Type B (PCR) (Not Detectd) RSV (PCR) (Not Detectd) SARS-CoV-2 (PCR) (Not Detectd) Blood Type Blood Type Recheck Bld Type Recheck Status Antibody Screen Crossmatch Spec Expiration Date 12/07/22 12/07/22 12/07/22 Range/Units 07:01 07:01 09:00 WBC (3.8-10.6) k/uL RBC (3.80-5.40) m/uL Hgb (11.4-16.0) gm/dL Hct (34.0-46.0) % MCV (80.0-100.0) fL MCH (25.0-35.0) pg MCHC (31.0-37.0) g/dL RDW (11.5-15.5) % Plt Count (150-450) k/uL MPV Neutrophils % % Lymphocytes % % Monocytes % % Eosinophils % % Basophils % % Neutrophils # (1.3-7.7) k/uL Lymphocytes # (1.0-4.8) k/uL Monocytes # (0-1.0) k/uL Eosinophils # (0-0.7) k/uL Basophils # (0-0.2) k/uL Hypochromasia Poikilocytosis Anisocytosis Microcytosis PT (10.0-12.5) sec INR (<1.2) APTT (22.0-30.0) sec Sodium (137-145) mmol/L Potassium (3.5-5.1) mmol/L Chloride (98-107) mmol/L Carbon Dioxide (22-30) mmol/L Anion Gap mmol/L BUN (7-17) mg/dL Creatinine (0.52-1.04) mg/dL Est GFR (CKD-EPI)AfAm (>60 ml/min/1.73 sqM) Est GFR (CKD-EPI)NonAf (>60 ml/min/1.73 sqM) Glucose (74-99) mg/dL Calcium (8.4-10.2) mg/dL Magnesium (1.6-2.3) mg/dL Total Bilirubin (0.2-1.3) mg/dL AST (14-36) U/L ALT (4-34) U/L Alkaline Phosphatase (38-126) U/L Troponin I <0.012 (0.000-0.034) ng/mL NT-Pro-B Natriuret Pep pg/mL Total Protein (6.3-8.2) g/dL Albumin (3.5-5.0) g/dL Influenza Type A (PCR) Not Detected (Not Detectd) Influenza Type B (PCR) Not Detected (Not Detectd) RSV (PCR) Not Detected (Not Detectd) SARS-CoV-2 (PCR) Not Detected (Not Detectd) Blood Type A Negative Blood Type Recheck A Neg Bld Type Recheck Status No Antibody Screen NEGATIVE Crossmatch See Detail Spec Expiration Date 12/10/20222299 Disposition Clinical Impression: Fall, Anemia, Head injury Disposition: ADMITTED IP TO THIS [facility] Condition: Stable Referrals: None,Stated [Primary Care Provider] - 1-2 days
[2022-12-07 07:41] LABS: ALT 20 U/L (4-34); AST 26 U/L (14-36); African American GFR (CKD) >90 (>60 ml/min/1.73 sqM); Albumin 3.8 g/dL (3.5-5.0); Alkaline Phosphatase 72 U/L (38-126); Anion Gap 7 mmol/L; Blood Urea Nitrogen 20 mg/dL (7-17); Calcium 8.8 mg/dL (8.4-10.2); Carbon Dioxide 25 mmol/L (22-30); Chloride 107 mmol/L (98-107); Glucose 104 mg/dL (74-99); Magnesium 2.2 mg/dL (1.6-2.3); Non-African American GFR(CKD) 82 (>60 ml/min/1.73 sqM); Potassium 3.9 mmol/L (3.5-5.1); Sodium 139 mmol/L (137-145); Total Bilirubin 0.4 mg/dL (0.2-1.3)
[2022-12-07 07:44] LABS: HGB 6.7 gm/dL (11.4-16.0); INR 2.9 (<1.2); Partial Thromboplastin Time 30.1 sec (22.0-30.0)
[2022-12-07 07:45] LABS: NT-Pro-B-Type Natriuretic Pept 217 pg/mL
--- NOTE | 2022-12-07 08:06 | CT ---
EXAMINATION TYPE: CT brain danitza tovar DATE OF EXAM: 12/07/2022 COMPARISON: None HISTORY: Fall CT DLP: 1455.[address] of the brain was performed. The ventricles, basal cisterns and sulci overlying the cerebral convexities demonstrate mildly enlarg ement. There is no evidence for intracranial hemorrhage or sulcal effacement. There is decreased attenuatio n about the periventricular white matter and deep white matter of both cerebral hemispheres, compatib le with chronic small vessel ischemia. No mass effects are seen. If symptoms persist consider MRI. Osseous calvarium is intact. Large left parietal scalp hematoma with laceration. IMPRESSION: 1. Age related atrophic and chronic small vessel ischemic change without acute intracranial process seen at this time. CT Cervical Spine: Unenhanced CT of the cervical spine was performed with bone and soft tissue window settings submitted . Coronal and sagittal reconstruction is obtained. There is normal alignment and prevertebral soft tissues. No evidence for acute cervical fracture . Scattered degenerative disc disease and spondylosis. Biapical scarring. IMPRESSION: 1. No evidence for acute fracture or subluxation of the cervical spine.
--- NOTE | 2022-12-07 08:09 | XR ---
EXAMINATION TYPE: XR chest 2V DATE OF EXAM: 12/07/2022 COMPARISON: 12/30/2019 HISTORY: Shortness of breath TECHNIQUE: Frontal and lateral views of the chest are obtained. FINDINGS: Scattered senescent parenchymal changes noted. Hyperinflation compatible with COPD. No evidence for infiltrate. No evidence for atelectasis. There is cardiomegaly with pulmonary venous congestion. Parenchymal scarring left lung base and right medial lung base. Moderate fixed hiatal hernia. Mediastinal structures are stable and grossly unrema rkable. No evidence for hilar prominence. Degenerative changes dorsal spine. IMPRESSION: 1. There is cardiomegaly with pulmonary venous congestion. Parenchymal scarring left lung base and ri ght medial lung base.
[2022-12-07] MEDS ORDERED: NALOXONE 0.4 MG/ML 1 ML VIAL IV PRN (10:04)
[2022-12-07] MEDS ORDERED: HYDROmorphone 0.5 MG/0.5 ML SYRINGE IVP PRN (10:04)
[2022-12-07] MEDS ORDERED: METOCLOPRAMIDE 5 MG/ML 2 ML VIAL IVP STA (10:31)
[2022-12-07 15:33] LABS: Appearance,Urine Clear (Clear); Bilirubin,Urine Negative (Negative); Blood,Urine Negative (Negative); Color,Urine Light Yellow; Glucose,Urine (UA) Negative (Negative); Ketones,Urine Negative (Negative); Leukocyte Esterase,Urine Negative (Negative); Nitrite,Urine Negative (Negative); PH, Urine 6.5 (5.0-8.0); Protein,Urine Trace (Negative); Specific Gravity,Urine 1.017 (1.001-1.035); Urobilinogen,Urine <2.0 mg/dL (<2.0)
--- NOTE | 2022-12-07 15:33 | P.HPIM ---
History of Present Illness H&P Date: 12/07/22 Physical pleasant 72-year-old female with medical history of asthma, COPD, gastroesophageal reflux disease, pulmonary embolism and DVTs patient is anticoagulated with warfarin and her INR is 2.9 on admission. Patient presents due to an episode of dizziness and fall when she was walking out of her ba throom. Patient did hit her head and she does have a laceration on the back of her head which is stapled. Patient denied losing consciousness. She denies a history of any bloody emesis no nausea vomiting or diarrhea she does state that her stools are darker in color due to taking Metamucil on a daily basis. She states that she's worked up in the past for GI bleed. On admission patient found to have a hemoglobin of 6.7 she is currently using 1 unit of blood it is likely that the presyncopal episode was due to the anemia. Patient will be monitored overnight we will check a B12 and folate. And iron studies. She did receive a tetanus vaccination in the ER. REVIEW OF SYSTEMS: CONSTITUTIONAL: No fever, no malaise, no fatigue. HEENT: No recent visual problems or hearing problems. Denied any sore throat. CARDIOVASCULAR: No chest pain, orthopnea, PND, no palpitations, no syncope. PULMONARY: No shortness of breath, no cough, no hemoptysis. GASTROINTESTINAL: No diarrhea, no nausea, no vomiting, no abdominal pain. NEUROLOGICAL: No headaches, no weakness, no numbness. HEMATOLOGICAL: Denies any bleeding or petechiae. GENITOURINARY: Denies any burning micturition, frequency, or urgency. MUSCULOSKELETAL/RHEUMATOLOGICAL: Denies any joint pain, swelling, or any muscle pain. ENDOCRINE: Denies any polyuria or polydipsia. The rest of the 14-point review of systems is negative. PHYSICAL EXAMINATION: GENERAL: The patient is alert and oriented x3, not in any acute distress. Well developed, well nourished. HEENT: Pupils are round and equally reacting to light. EOMI. No scleral icterus. No conjunctival pallor. Normocephalic, atraumatic. No pharyngeal erythema. No thyromegaly. CARDIOVASCULAR: S1 and S2 present. No murmurs, rubs, or gallops. PULMONARY: Chest is clear to auscultation, no wheezing or crackles. ABDOMEN: Soft, nontender, nondistended, normoactive bowel sounds. No palpable organomegaly. MUSCULOSKELETAL: No joint swelling or deformity. EXTREMITIES: No cyanosis, clubbing, or pedal edema. NEUROLOGICAL: Gross neurological examination did not reveal any focal deficits. SKIN: No rashes. Assessment Presyncope and fall with trauma likely due to anemia Head laceration which has been stapled. Microcytic Anemia will check iron studies, B12 and folate patient reports no blood stools or emesis Hx of asthma/COPD no acute exacerbation History of PE/DVT on warfarin INR therapeutic at 2.9 Gastroesophageal reflux disease GI prophylaxis DVT prophylaxis on warfarin Plan Patient will be transfused 1 unit of packed red blood cells and repeat hemoglobin the AM Pending iron studies, B12 and folate PT/OT consultation Repeat labs in AM The impression and plan of care has been dictated by Tereza Fay Nurse Practitioner as directed. Dr. Jose MD I have performed a history and physical examination and medical decision making of this patient, discussed the same with the dictator, and agree with the dictators assessment and plan as written, documented as a scribe. Based on total visit time, I have performed more than 50% of this visit. Past Medical History Past Medical History: Asthma, COPD, GERD/Reflux, Pulmonary Embolus (PE) Additional Past Medical History / Comment(s): hx- hiatal hernia, colitis and loose watery stools, DVTs with PE, History of Any Multi-Drug Resistant Organisms: None Reported Past Surgical History: Adenoidectomy, Breast Surgery, Section, Tonsillectomy Additional Past Surgical History / Comment(s): alia oophorectomy, Past Anesthesia/Blood Transfusion Reactions: Motion Sickness Past Psychological History: No Psychological Hx Reported Smoking Status: Never smoker Past Alcohol Use History: Occasional Past Drug Use History: None Reported - Past Family History Mother Family Medical History: No Reported History Medications and Allergies Home Medications Medication Instructions Recorded Confirmed Type Warfarin Sodium 3 mg PO SUTUWETHFRSA@209912/30/19 12/07/22 History Fluticasone Propion/Salmeterol 1 puff INHALATION RT-HS 03/22/21 12/07/22 History [Advair 250-50 Diskus] Warfarin Sodium 6 mg PO MO@209903/22/21 12/07/22 History Allergies Allergy/AdvReac Type Severity Reaction Status Date / Time Iodinated Contrast Media Allergy Rash/Hives Verified 12/07/22 12:19 [Iodinated Contrast Media - IV Dye] Iodine and Iodide Containing Allergy Rash/Hives Verified 12/07/22 12:19 Produc Penicillins Allergy Rash/Hives Verified 12/07/22 12:19 Physical Exam Vitals: Vital Signs Temp Pulse Resp BP Pulse Ox 12/07/22 15:06 87 20 142/91 98 12/07/22 14:40 98.7 F 85 20 147/92 97 12/07/22 14:08 94 20 152/85 99 12/07/22 13:16 87 20 149/76 99 12/07/22 12:21 86 20 139/72 98 12/07/22 11:59 98.1 F 82 20 141/75 98 12/07/22 11:39 98.2 F 87 20 146/66 99 12/07/22 11:23 98.1 F 87 20 140/75 96 12/07/22 11:00 98.5 F 83 20 137/72 94 L 12/07/22 08:29 93 22 166/80 95 12/07/22 06:41 98.2 F 90 18 162/78 98 Intake and Output 12/07/22 12/07/22 12/07/22 06:59 14:59 22:59 Intake Total 310 Balance 310 Intake: Blood Product 310 Rc As-1 Unit 310 [id number] Other: Weight 104.326 kg Results CBC & Chem 7: 12/07/22 07:01 12/07/22 07:01 Labs: Abnormal Lab Results - Last 24 Hours (Table) 12/07/22 12/07/22 12/07/22 Range/Units 07:01 07:01 07:01 RBC 3.52 L (3.80-5.40) m/uL Hgb 6.7 L* (11.4-16.0) gm/dL Hct 23.0 L (34.0-46.0) % MCV 65.3 L (80.0-100.0) fL MCH 19.0 L (25.0-35.0) pg MCHC 29.1 L (31.0-37.0) g/dL RDW 17.9 H (11.5-15.5) % PT 29.0 H (10.0-12.5) sec INR 2.9 H (<1.2) APTT 30.1 H (22.0-30.0) sec BUN 20 H (7-17) mg/dL Glucose 104 H (74-99) mg/dL Crossmatch 12/07/22 Range/Units 09:00 RBC (3.80-5.40) m/uL Hgb (11.4-16.0) gm/dL Hct (34.0-46.0) % MCV (80.0-100.0) fL MCH (25.0-35.0) pg MCHC (31.0-37.0) g/dL RDW (11.5-15.5) % PT (10.0-12.5) sec INR (<1.2) APTT (22.0-30.0) sec BUN (7-17) mg/dL Glucose (74-99) mg/dL Crossmatch See Detail Assessment and Plan Time with Patient: Less than 30
[2022-12-07] MEDS ORDERED: IPRATROPIUM-ALBUTEROL 3 ML NEB INHALATION PRN (17:32)
[2022-12-07] MEDS ORDERED: ONDANSETRON 4 MG/2 ML VIAL IVP PRN (17:34)
[2022-12-07] MEDS ORDERED: CYCLOBENZAPRINE 5 MG TAB PO PRN (17:34)
[2022-12-07] MEDS ORDERED: METHYL SALICYLATE-MENTHOL OINT (3 OZ TUBE) TOPICAL PRN (17:38)
[2022-12-07] MEDS ORDERED: BUDESONIDE 0.25 MG/2 ML NEBU INHALATION SCH (20:00)
[2022-12-07] MEDS: PANTOPRAZOLE 40 MG/10 ML VIAL IVP SCH (20:36)
[2022-12-07] MEDS: SYMBICORT 80-4.5 MCG INHALER INHALATION SCH (20:41)
[2022-12-07] MEDS: IPRATROPIUM-ALBUTEROL 3 ML NEB INHALATION SCH ×2 (20:41→23:16)
[2022-12-08 00:36] LABS: % Iron Saturation 2.15 (12.00-45.00)
[2022-12-08] MEDS: IPRATROPIUM-ALBUTEROL 3 ML NEB INHALATION SCH ×5 (03:13→20:01)
[2022-12-08] MEDS ORDERED: PANTOPRAZOLE 40 MG TABLET PO SCH (07:30)
[2022-12-08] MEDS: SYMBICORT 80-4.5 MCG INHALER INHALATION SCH ×2 (08:29→20:01)
[2022-12-08] MEDS: PANTOPRAZOLE 40 MG/10 ML VIAL IVP SCH ×2 (08:39→20:51)
[2022-12-08 08:46] LABS: Anisocytosis Moderate; Basophils % (A) 0 %; Eosinophils # (A) 0.1 k/uL (0-0.7); Eosinophils % (A) 1 %; HCT 25.5 % (34.0-46.0); HGB 7.6 gm/dL (11.4-16.0); Hypochromasia Marked; Lymphocytes # (A) 1.2 k/uL (1.0-4.8); Lymphocytes % (A) 17 %; MCHC 29.9 g/dL (31.0-37.0); Mean Platelet Volume 7.4; Microcytosis Marked; Monocytes # (A) 0.6 k/uL (0-1.0); Monocytes % (A) 8 %; Neutrophils # (A) 5.4 k/uL (1.3-7.7); Neutrophils % (A) 72 %; Platelet Count 380 k/uL (150-450); Poikilocytosis Marked; RBC 3.62 m/uL (3.80-5.40); RDW 21.3 % (11.5-15.5); WBC 7.5 k/uL (3.8-10.6)
[2022-12-08 08:59] LABS: MCV 70.4 fL (80.0-100.0)
[2022-12-08] MEDS: SODIUM FERRIC GLUCONAT-SUCROSE 125 MG in SODIUM CHLORIDE 0.9% 100 ML IVPB SCH (10:14)
--- NOTE | 2022-12-08 13:23 | P.PN ---
Subjective Progress Note Date: 12/08/22 Physical pleasant 72-year-old female with medical history of asthma, COPD, gastroesophageal reflux disease, pulmonary embolism and DVTs patient is anticoagulated with warfarin and her INR is 2.9 on admission. Patient presents due to an episode of dizziness and fall when she was walking out of her bathroom . Patient did hit her head and she does have a laceration on the back of her head which is stapled. Patient denied losing consciousness. She denies a history of any bloody emesis no nausea vomiting or diarrhea she does state that her stools are darker in color due to taking Metamucil on a daily basis. She states that she's worked up in the past for GI bleed. On admission patient found to have a hemoglobin of 6.7 she is currently using 1 unit of blood it is likely that the presyncopal episode was due to the anemia. Patient will be monitored overnight we will check a B12 and folate. And iron studies. She did receive a tetanus vaccination in the ER. 12/08/2022 Patient is evaluated today resting in bed. Does continue to report dizziness although improving. Having some epigastric abdominal pain and tenderness on palpation. Requesting surgery consultation for possible EGD. Hemoglobin up to 7.6 today. Review of Systems Constitutional: Denied any fatigue denied any fever. Cardio vascular: denied any chest pain, palpitations Gastrointestinal: denied any nausea, vomiting, diarrhea reports epigastric pain and tenderness Pulmonary: Denied any shortness of breath cough Neurologic denied any new focal deficits All inpatient medications were reviewed and appropriate changes in these medications as dictated in the interval history and assessment and plan. PHYSICAL EXAMINATION: GENERAL: The patient is alert and oriented x3, not in any acute distress. Well developed, well nourished. HEENT: Pupils are round and equally reacting to light. EOMI. No scleral icterus. No conjunctival pallor. Normocephalic, atraumatic. No pharyngeal erythema. No thyromegaly. CARDIOVASCULAR: S1 and S2 present. No murmurs, rubs, or gallops. PULMONARY: Chest is clear to auscultation, no wheezing or crackles. ABDOMEN: Soft, nontender, nondistended, normoactive bowel sounds. No palpable organomegaly. MUSCULOSKELETAL: No joint swelling or deformity. EXTREMITIES: No cyanosis, clubbing, or pedal edema. NEUROLOGICAL: Gross neurological examination did not reveal any focal deficits. SKIN: No rashes. Assessment Presyncope and fall with trauma likely due to anemia Epigastric tenderness likely gastritis due to rule out acute upper GI bleed due to the dark stools and low hemoglobin Head laceration which has been stapled. 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 surgery consultation patient may likely require EGD Continue Protonix twice a day Hold warfarin pending surgical recommendations PT/OT consultation Repeat labs in AM The impression and plan of care has been dictated by Tereza Fay, Nurse Practitioner as directed. Dr. Jose MD I have performed a history and physical examination and medical decision making of this patient, discussed the same with the dictator, and agree with the dictators assessment and plan as written, documented as a scribe. Based on total visit time, I have performed more than 50% of this visit. Objective - Vital Signs Vital signs: Vital Signs Temp 98.2 F 12/08/22 08:00 Pulse 84 12/08/22 12:20 Resp 16 12/08/22 08:00 BP 117/63 12/08/22 08:00 Pulse Ox 94 L 12/08/22 08:29 FiO2 Intake & Output 12/07/22 12/08/22 12/08/22 18:59 06:59 18:59 Intake Total 620 590 Output Total 300 Balance 620 290 Weight 104.326 kg Intake: Oral 590 Blood Product 620 Rc As-1 Unit 310 [id number] Output: Urine 300 Other: Voiding Method Bedpan Bedpan Bedpan Diaper Diaper Diaper Incontinent Incontinent Incontinent - Labs CBC & Chem 7: 12/08/22 06:53 12/07/22 07:01 Labs: Abnormal Lab Results - Last 24 Hours (Table) 12/07/22 12/07/22 12/07/22 Range/Units 07:01 07:01 07:01 RBC (3.80-5.40) m/uL Hgb (11.4-16.0) gm/dL Hct (34.0-46.0) % MCV (80.0-100.0) fL MCH (25.0-35.0) pg MCHC (31.0-37.0) g/dL RDW (11.5-15.5) % Iron 10 L (50-170) UG/DL TIBC 465 H (228-460) UG/DL % Saturation 2.15 L (12.00-45.00) Ferritin (10.0-291.0) ng/mL Vitamin B12 185.0 L (200.0-944.0) pg/mL Urine Protein Trace H (Negative) Crossmatch 12/07/22 12/07/22 12/08/22 Range/Units 07:04 09:00 06:53 RBC 3.62 L (3.80-5.40) m/uL Hgb 7.6 L (11.4-16.0) gm/dL Hct 25.5 L (34.0-46.0) % MCV 70.4 L D (80.0-100.0) fL MCH 21.0 L (25.0-35.0) pg MCHC 29.9 L (31.0-37.0) g/dL RDW 21.3 H (11.5-15.5) % Iron (50-170) UG/DL TIBC (228-460) UG/DL % Saturation (12.00-45.00) Ferritin 7.6 L (10.0-291.0) ng/mL Vitamin B12 (200.0-944.0) pg/mL Urine Protein (Negative) Crossmatch See Detail Assessment and Plan Time with Patient: Less than 30
[2022-12-08 14:15] LABS: INR 3.3 (<1.2); Prothrombin Time 32.3 sec (10.0-12.5)
[2022-12-09] MEDS: IPRATROPIUM-ALBUTEROL 3 ML NEB INHALATION SCH ×6 (00:18→20:15)
[2022-12-09 06:26] LABS: INR 2.5 (<1.2); Prothrombin Time 24.5 sec (10.0-12.5)
[2022-12-09] MEDS: SYMBICORT 80-4.5 MCG INHALER INHALATION SCH ×2 (08:20→20:16)
[2022-12-09] MEDS: PANTOPRAZOLE 40 MG/10 ML VIAL IVP SCH ×2 (08:53→20:18)
[2022-12-09] MEDS: SODIUM FERRIC GLUCONAT-SUCROSE 125 MG in SODIUM CHLORIDE 0.9% 100 ML IVPB SCH (10:35)
--- NOTE | 2022-12-09 11:44 | P.GSCN ---
History of Present Illness Consult date: 12/09/22 Reason for Consult: GI bleed History of present illness: 72-year-old female came to the hospital because of dizziness. Patient was found have a hemoglobin of 6.7. On Coumadin for history of PE. Patient has had some black colored stools although states she does take Kaopectate occasionally. INR was elevated. He was given one unit of blood. Hemoglobin responded appropriately. Hemoglobin apically stable. Last EGD and colonoscopy 3 years ago by GI. Had a 5 mm gastric ulcer at the time and diverticulosis as well as hiatal hernia. Patient says she is not interested in any further colonoscopies. Review of Systems The patient denies any acute changes in vision or hearing, no dysphagia or odynophagia, no chest pain or shortness of breath, no dysuria or hematuria, no headache, no runny nose, no rectal bleeding, no unexplained weight loss Past Medical History Past Medical History: Asthma, COPD, Deep Vein Thrombosis (DVT), GERD/Reflux, Pulmonary Embolus (PE) Additional Past Medical History / Comment(s): hx- hiatal hernia, colitis and l oose watery stools, DVTs with PE(patient takes Coumadin) History of Any Multi-Drug Resistant Organisms: None Reported Past Surgical History: Adenoidectomy, Breast Surgery, Section, Tonsillectomy Additional Past Surgical History / Comment(s): alia oophorectomy, Past Anesthesia/Blood Transfusion Reactions: Motion Sickness Additional Past Anesthesia/Blood Transfusion Reaction / Comm: Patient has received blood transfusions with no reaction. Past Psychological History: No Psychological Hx Reported Smoking Status: Never smoker Past Alcohol Use History: Occasional Past Drug Use History: None Reported - Past Family History Mother Family Medical History: No Reported History Medications and Allergies Home Medications Medication Instructions Recorded Confirmed Type Warfarin Sodium 3 mg PO SUTUWETHFRSA@209912/30/19 12/07/22 History Fluticasone Propion/Salmeterol 1 puff INHALATION RT-HS 03/22/21 12/07/22 History [Advair 250-50 Diskus] Warfarin Sodium 6 mg PO MO@209903/22/21 12/07/22 History Allergies Allergy/AdvReac Type Severity Reaction Status Date / Time Iodinated Contrast Media Allergy Rash/Hives Verified 12/07/22 12:19 [Iodinated Contrast Media - IV Dye] Iodine and Iodide Containing Allergy Rash/Hives Verified 12/07/22 12:19 Produc Penicillins Allergy Rash/Hives Verified 12/07/22 12:19 Surgical - Exam Vital Signs Temp Pulse Resp BP Pulse Ox 98.2 F 90 18 162/78 98 12/07/22 06:41 12/07/22 06:41 12/07/22 06:41 12/07/22 06:41 12/07/22 06:41 Physical exam: General: Well-developed, well-nourished HEENT: Posterior scalp laceration, sclerae nonicteric Abdomen: Nontender, nondistended Extremities: No edema Neuro: Alert and oriented Results - Labs 12/08/22 06:53 12/07/22 07:01 Abnormal Lab Results - Last 24 Hours (Table) 12/08/22 12/09/22 Range/Units 13:30 04:11 PT 32.3 H 24.5 H (10.0-12.5) sec INR 3.3 H 2.5 H (<1.2) Assessment and Plan (1) GI bleed Narrative/Plan: 72-year-old female with anemia and subsequent dizziness. Patient with small laceration posterior scalp stapled by ER. Previous endoscopy reviewed. Recommend EGD at this time. Continue antiacids. We'll schedule EGD for tomorrow. Current Visit: Yes Status: Acute Code(s): K92.2 - GASTROINTESTINAL HEMORRHAGE, UNSPECIFIED SNOMED Code(s): 08482653
[2022-12-09 13:23] LABS: HCT 25.3 % (37.2-46.3); HGB 7.1 d/dL (12.0-15.0); MCH 20.2 pg (27.0-32.0); MCHC 28.1 d/dL (32.0-37.0); MCV 72.1 FL (80.0-97.0); Mean Platelet Volume 10.3 FL (9.5-12.2); NRBC Per 100 WBC 0.03 X 10*3/uL (0.00-0.01); Platelet Count 396 X 10*3/uL (140-440); RBC 3.51 X 10*6/uL (4.10-5.20); RDW 23.8 % (11.5-14.5); WBC 9.72 X 10*3/uL (4.50-10.00)
[2022-12-09 13:27] LABS: BUN/Creat Ratio 17.11 Ratio (12.00-20.00); Blood Urea Nitrogen 15.4 mg/dL (9.0-27.0); Calcium 8.4 mg/dL (8.7-10.3); Carbon Dioxide 25.7 mmol/L (21.6-31.8); Chloride 105 mmol/L (96-109); Glucose 96 mg/dL (70-110); Potassium 3.9 mmol/L (3.5-5.5); Sodium 140 mmol/L (135-145)
[2022-12-09 14:03] LABS: Anisocytosis (M) 2+; Basophils # (A) 0.04 X 10*3/uL (0.00-0.10); Basophils % (A) 0.4 %; Eosinophils # (A) 0.31 X 10*3/uL (0.04-0.35); Eosinophils % (A) 3.2 %; Hypochromasia (M) 2+; Lymphocytes # (A) 1.25 X 10*3/uL (0.90-5.00); Lymphocytes % (A) 12.9 %; Microcytosis (M) 2+; Monocytes # (A) 0.87 X 10*3/uL (0.20-1.00); Neutrophils # (A) 7.16 X 10*3/uL (1.80-7.70); Neutrophils % (A) 73.6 %
[2022-12-09] MEDS ORDERED: MECLIZINE 12.5 MG TAB PO PRN (17:13)
[2022-12-09 20:50] LABS: Glucose,Whole Blood 123 mg/dL (70-110)
--- NOTE | 2022-12-09 21:22 | P.PN ---
Subjective Progress Note Date: 12/09/22 Physical pleasant 72-year-old female with medical history of asthma, COPD, gastroesophageal reflux disease, pulmonary embolism and DVTs patient is anticoagulated with warfarin and her INR is 2.9 on admission. Patient presents due to an episode of dizziness and fall when she was walking out of her bathroom . Patient did hit her head and she does have a laceration on the back of her head which is stapled. Patient denied losing consciousness. She denies a history of any bloody emesis no nausea vomiting or diarrhea she does state that her stools are darker in color due to taking Metamucil on a daily basis. She states that she's worked up in the past for GI bleed. On admission patient found to have a hemoglobin of 6.7 she is currently using 1 unit of blood it is likely that the presyncopal episode was due to the anemia. Patient will be monitored overnight we will check a B12 and folate. And iron studies. She did receive a tetanus vaccination in the ER. 12/08/2022 Patient is evaluated today resting in bed. Does continue to report dizziness although improving. Having some epigastric abdominal pain and tenderness on palpation. Requesting surgery consultation for possible EGD. Hemoglobin up to 7.6 today. 12/09/2022 Patient is evaluated today resting in bed. Reports dizziness described as room spinning and has history of vertigo; meclizine will be added and PT/OT are on consultation. Patient reports the abdominal discomfort is improving she is continued on protonix BID. Hemoglobin remains stable and patient denies any bloody or dark stool. Hemoglobin 7.1. Patient is status post 1 unit of PRBC. INR today 2.5 and warfarin remains on hold. Review of Systems Constitutional: Denied any fatigue denied any fever. Cardio vascular: denied any chest pain, palpitations Gastrointestinal: denied any nausea, vomiting, diarrhea reports epigastric pain and tenderness Pulmonary: Denied any shortness of breath cough Neurologic denied any new focal deficits All inpatient medications were reviewed and appropriate changes in these medications as dictated in the interval history and assessment and plan. PHYSICAL EXAMINATION: GENERAL: The patient is alert and oriented x3, not in any acute distress. Well developed, well nourished. HEENT: Pupils are round and equally reacting to light. EOMI. No scleral icterus. No conjunctival pallor. Normocephalic, atraumatic. No pharyngeal erythema. No thyromegaly. CARDIOVASCULAR: S1 and S2 present. No murmurs, rubs, or gallops. PULMONARY: Chest is clear to auscultation, no wheezing or crackles. ABDOMEN: Soft, nontender, nondistended, normoactive bowel sounds. No palpable organomegaly. MUSCULOSKELETAL: No joint swelling or deformity. EXTREMITIES: No cyanosis, clubbing, or pedal edema. NEUROLOGICAL: Gross neurological examination did not reveal any focal deficits. SKIN: No rashes. Assessment Presyncope and fall with trauma likely due to anemia Epigastric tenderness likely gastritis due to rule out acute upper GI bleed due to the dark stools and low hemoglobin Head laceration which has been stapled. 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 Patient continues on IV protonix BID Meclizine added for the dizziness. Gen. surgery consultation patient scheduled to undergo EGD tomorrow. Hold warfarin pending surgical recommendations PT/OT consultation Repeat labs in AM The impression and plan of care has been dictated by Tereza Fay Nurse Practitioner as directed. Dr. Jose MD I have performed a history and physical examination and medical decision making of this patient, discussed the same with the dictator, and agree with the dictators assessment and plan as written, documented as a scribe. Based on total visit time, I have performed more than 50% of this visit. Objective - Vital Signs Vital signs: Vital Signs Temp 98.8 F 12/09/22 19:46 Pulse 99 12/09/22 20:28 Resp 20 12/09/22 19:46 BP 126/70 12/09/22 19:46 Pulse Ox 94 L 12/09/22 19:46 FiO2 Intake & Output 12/09/22 12/09/22 12/10/22 06:59 18:59 06:59 Intake Total 590 Output Total 300 500 Balance 290 -500 Intake: Oral 590 Output: Urine 300 500 Other: Voiding Method Bedpan Bedpan Diaper Diaper Incontinent Incontinent - Labs CBC & Chem 7: 12/09/22 04:11 12/09/22 04:11 Labs: Abnormal Lab Results - Last 24 Hours (Table) 12/09/22 12/09/22 12/09/22 Range/Units 04:11 04:11 04:11 RBC 3.51 L (4.10-5.20) X 10*6/uL Hgb 7.1 L (12.0-15.0) d/dL Hct 25.3 L (37.2-46.3) % MCV 72.1 L (80.0-97.0) FL MCH 20.2 L (27.0-32.0) pg MCHC 28.1 L (32.0-37.0) d/dL RDW 23.8 H (11.5-14.5) % NRBC/100 WBC Diff 0.03 H (0.00-0.01) X 10*3/uL Hypochromasia (manual) 2+ A Anisocytosis (manual) 2+ A Microcytosis (manual) 2+ A PT 24.5 H (10.0-12.5) sec INR 2.5 H (<1.2) POC Glucose (mg/dL) (70-110) mg/dL Calcium 8.4 L (8.7-10.3) mg/dL 12/09/22 Range/Units 20:46 RBC (4.10-5.20) X 10*6/uL Hgb (12.0-15.0) d/dL Hct (37.2-46.3) % MCV (80.0-97.0) FL MCH (27.0-32.0) pg MCHC (32.0-37.0) d/dL RDW (11.5-14.5) % NRBC/100 WBC Diff (0.00-0.01) X 10*3/uL Hypochromasia (manual) Anisocytosis (manual) Microcytosis (manual) PT (10.0-12.5) sec INR (<1.2) POC Glucose (mg/dL) 123 H (70-110) mg/dL Calcium (8.7-10.3) mg/dL Assessment and Plan Time with Patient: Less than 30
[2022-12-10] MEDS: IPRATROPIUM-ALBUTEROL 3 ML NEB INHALATION SCH ×4 (07:46→18:27)
[2022-12-10] MEDS: SYMBICORT 80-4.5 MCG INHALER INHALATION SCH ×2 (07:46→18:27)
[2022-12-10] MEDS: PANTOPRAZOLE 40 MG/10 ML VIAL IVP SCH ×2 (08:37→20:14)
[2022-12-10] MEDS: SODIUM FERRIC GLUCONAT-SUCROSE 125 MG in SODIUM CHLORIDE 0.9% 100 ML IVPB SCH (08:38)
[2022-12-10 09:02] LABS: Basophils # (A) 0.04 X 10*3/uL (0.00-0.10); Basophils % (A) 0.5 %; Eosinophils # (A) 0.58 X 10*3/uL (0.04-0.35); Eosinophils % (A) 6.5 %; HCT 25.5 % (37.2-46.3); HGB 7.2 d/dL (12.0-15.0); Lymphocytes % (A) 14.6 %; MCH 20.5 pg (27.0-32.0); MCHC 28.2 d/dL (32.0-37.0); MCV 72.4 FL (80.0-97.0); Mean Platelet Volume 9.7 FL (9.5-12.2); Monocytes # (A) 0.78 X 10*3/uL (0.20-1.00); Monocytes % (A) 8.8 %; NRBC Per 100 WBC 0.02 X 10*3/uL (0.00-0.01); Neutrophils # (A) 6.12 X 10*3/uL (1.80-7.70); Neutrophils % (A) 68.9 %; Platelet Count 363 X 10*3/uL (140-440); RBC 3.52 X 10*6/uL (4.10-5.20); RDW 24.9 % (11.5-14.5); WBC 8.88 X 10*3/uL (4.50-10.00)
[2022-12-10 09:11] LABS: INR 1.4 (<1.2); Prothrombin Time 14.8 sec (10.0-12.5)
[2022-12-10] MEDS ORDERED: PROPOFOL 10 MG/ML 20 ML VIAL IV ONE (09:36)
[2022-12-10] MEDS ORDERED: LIDOCAINE 2% (PF) 20 MG/ML 5 ML VIAL ONE (09:36)
[2022-12-10] MEDS ORDERED: IV FLUID CONTINUATION 1,000 ML IV ONE (09:59)
--- NOTE | 2022-12-10 10:51 | P.PCN ---
Date of Procedure: 12/10/22 Procedure(s) Performed: Preoperative Dx: GI bleed Postoperative Dx: Gastritis, hiatal hernia Procedure: EGD with Bx Anesthesia: Sedation Endoscopist: Dr. Ledesma Specimens: Antrum, body of stomach Endoscopic Procedure: The patient was on the endoscopy table in the left decubitus position. The Olympus gastroscope was inserted into the oropharynx and passed under direct visualization to the region of the third portion of the duodenum. From that point the scope was slowly withdrawn inspecting all surface s carefully. There were no neoplastic inflammatory or polypoid lesions throughout the duodenum. The pylorus was widely patent. The stomach was carefully inspected. There was mild gastritis present. A biopsy of the antrum took place to rule out H. pylori. Retroflexion revealed a large hiatal hernia. The upper two thirds of the stomach were present above the diaphragm. There was mild inflammatory changes in the body of the stomach without ulceration. Biopsy of the body of the stomach took place. The esophagus was then carefully examined. There were no neoplastic inflammatory or polypoid lesions throughout the visualized esophagus. The patient was then taken to the recovery room in stable condition per anesthesia guidelines. Recommendations: Etiology for anemia could be on the basis of hiatal hernia with gastritis. The degree of gastritis however is quite mild. Consider outpatient colonoscopy if anemia persists. Continue antiacids for now.
[2022-12-10] MEDS ORDERED: FUROSEMIDE 10 MG/ML 2 ML VIAL IV ONE (13:12)
--- NOTE | 2022-12-10 23:23 | PN ---
PROGRESS NOTE DATE OF SERVICE: 12/10/2022 SUBJECTIVE: This is a 72-year-old woman, who was admitted with presyncope and fall, was also being evaluated for anemia. The patient underwent EGD by surgery which showed gastritis and hiatal hernia. No chest pain, no palpitations, no fever. OBJECTIVE: VITAL SIGNS: Pulse 87, blood pressure 132/66, and respirations 18. CHEST: Clear to auscultation. CARDIOVASCULAR: S1, S2. ABDOMEN: Soft, nontender. NERVOUS SYSTEM: No focal deficits. LABORATORY DATA: Hemoglobin 7.2, INR 1.4. ASSESSMENT: 1. Anemia, possibly GI bleed secondary to gastritis and hiatal hernia. 2. Acute blood loss anemia. 3. Presyncope. 4. Head laceration. 5. Asthma, chronic obstructive pulmonary disease. 6. History of pulmonary embolism/deep venous thrombosis, on Coumadin. RECOMMENDATIONS: Recommended to continue current management, continue symptomatic treatment. Otherwise at this time, I would recommend to transfuse 1 unit and to monitor closely. Also recommended Hematology/Oncology evaluation because of history of PE, DVT and continued anticoagulation in view of the bleeding. Prognosis guarded. Further recommendations to follow. See orders for details. MMODL / IJN: [id number] /
[2022-12-11] MEDS: IPRATROPIUM-ALBUTEROL 3 ML NEB INHALATION SCH ×4 (07:36→21:57)
[2022-12-11] MEDS: SYMBICORT 80-4.5 MCG INHALER INHALATION SCH ×2 (07:36→21:57)
[2022-12-11] MEDS: PANTOPRAZOLE 40 MG/10 ML VIAL IVP SCH ×2 (08:53→21:14)
[2022-12-11] MEDS: SODIUM FERRIC GLUCONAT-SUCROSE 125 MG in SODIUM CHLORIDE 0.9% 100 ML IVPB SCH (08:53)
[2022-12-11 10:51] LABS: Basophils # (A) 0.05 X 10*3/uL (0.00-0.10); Basophils % (A) 0.6 %; Eosinophils # (A) 0.48 X 10*3/uL (0.04-0.35); Eosinophils % (A) 5.5 %; HCT 29.9 % (37.2-46.3); HGB 8.7 d/dL (12.0-15.0); Lymphocytes # (A) 1.11 X 10*3/uL (0.90-5.00); Lymphocytes % (A) 12.8 %; MCH 21.6 pg (27.0-32.0); MCHC 29.1 d/dL (32.0-37.0); MCV 74.2 FL (80.0-97.0); Mean Platelet Volume 9.9 FL (9.5-12.2); Monocytes # (A) 0.78 X 10*3/uL (0.20-1.00); NRBC Per 100 WBC 0 X 10*3/uL (0.00-0.01); Neutrophils # (A) 6.21 X 10*3/uL (1.80-7.70); Neutrophils % (A) 71.4 %; Platelet Count 335 X 10*3/uL (140-440); RBC 4.03 X 10*6/uL (4.10-5.20); RDW 26.5 % (11.5-14.5); WBC 8.69 X 10*3/uL (4.50-10.00)
[2022-12-11 11:06] LABS: BUN/Creat Ratio 19.88 Ratio (12.00-20.00); Blood Urea Nitrogen 15.9 mg/dL (9.0-27.0); Calcium 8.8 mg/dL (8.7-10.3); Carbon Dioxide 25.8 mmol/L (21.6-31.8); Chloride 104 mmol/L (96-109); Glucose 94 mg/dL (70-110); Potassium 4.2 mmol/L (3.5-5.5); Sodium 140 mmol/L (135-145)
[2022-12-11] MEDS: MECLIZINE 12.5 MG TAB PO SCH ×3 (12:58→21:14)
[2022-12-11] MEDS: CYANOCOBALAMIN 1,000 MCG/ML 1 ML VIAL IM SCH (12:58)
--- NOTE | 2022-12-11 14:09 | CT ---
EXAMINATION TYPE: CT abdomen pelvis wo con CT DLP: 610.70 mGycm, Automated exposure control for dose reduction was used. DATE OF EXAM: 12/11/2022 1:26 PM COMPARISON: None CLINICAL INDICATION:Female, 72 years old with history of fall, precipitous drop in Hgb; fall, precipi tous drop in Hgb TECHNIQUE: Axial CT of the ;CT abdomen pelvis wo con;Sagittal and coronal reformats were created on a separate workstation. Contrast used: mL of , (none if empty) Oral contrast used: without Oral Contrast (none if empty) FINDINGS: LOWER CHEST: There is a large hiatal hernia. ABDOMEN LIVER: Unremarkable GALLBLADDER AND BILE DUCTS: Unremarkable. PANCREAS: Unremarkable. SPLEEN: Unremarkable. ADRENAL GLANDS: Unremarkable. KIDNEYS AND URETERS: No evidence of hydronephrosis or renal calculus. The ureters are unremarkable. PELVIS BLADDER: Unremarkable REPRODUCTIVE: Unremarkable. ABDOMEN & PELVIS STOMACH AND BOWEL: No evidence of bowel obstruction. The appendix is normal. PERITONEUM/RETROPERITONEUM: No evidence of pneumoperitoneum or free fluid. VASCULATURE: No evidence of aortic aneurysm. No evidence for hematoma or evidence for fluid collectio n in the youei-bs-fibs. MUSCULOSKELETAL: No acute osseous abnormalities. Moderate disc degeneration changes are present throu ghout the thoracolumbar spine. There is end-stage osteoarthrosis changes with [id number] articulati on The, deformity of the left femoral head and acetabulum. LYMPH NODES: No gross evidence for lymphadenopathy. SOFT TISSUE/ABDOMINAL WALL: Fat-containing bilateral inguinal hernias. Fat-containing buccal hernia. IMPRESSION: 1. No evidence for intra-abdominal hemorrhage. No hematoma visualized in the [id number]. 2. Severe end-stage left hip osteoarthrosis. 3. Moderate degeneration of the spine.
--- NOTE | 2022-12-11 14:16 | P.PN ---
Subjective Progress Note Date: 12/11/22 CHIEF COMPLAINT: GI bleeding HISTORY OF PRESENT ILLNESS: Patient status post EGD revealing gastritis and hiatal hernia. Anemia could be secondary to the hiatal hernia with gastritis Patient denies abdominal pain. Denies any nausea or vomiting. Tolerating diet. Hemoglobin has gone up from 7.2-8.7. Reports no blood in her stools. PHYSICAL EXAM: VITAL SIGNS: Reviewed. GENERAL: Well-developed in no acute distress. ABDOMEN: Soft. Nondistended. Nontender. NEUROLOGIC: Alert and oriented. Cranial nerves II through XII grossly intact. ASSESSMENT: 1. GI bleed 2. Anemia 3. Status post EGD revealing hiatal hernia and gastritis PLAN: -Patient's hemoglobin is improving. She is tolerating diet. Consider outpatient colonoscopy if anemia persists -Patient can be discharged from surgical standpoint -Continue PPI Physician Supervisor [place] note has been reviewed by physician. Signing provider agrees with the documented findings, assessment, and plan of care. I have personally seen and examined the patient, reviewed the ELECTRONEURODIAGNOSTIC TECHNICIAN /PAs history, exam and MDM and agree with the assessment and plan as written. Based on total visit time, I have performed more than 50% of the visit. As above: Patient doing well today. No rectal bleeding or melena. Hemoglobin stable. Continue antiacids. Outpatient colonoscopy if anemia persists. We'll sign off. Please call if needed. Objective - Vital Signs Vital signs: Vital Signs Temp 99.8 F H 12/11/22 12:07 Pulse 97 12/11/22 12:07 Resp 18 12/11/22 12:07 BP 147/73 12/11/22 12:06 Pulse Ox 95 12/11/22 07:30 FiO2 Intake & Output 12/10/22 12/11/22 12/11/22 18:59 06:59 18:59 Intake Total 100 283 Output Total 900 Balance 100 -617 Intake: IV 100 Blood Product 0 283 Rc Pheresis 2 As3 Unit 0 283 [id number] Output: Urine 900 Other: Voiding Method Bedpan Bedpan Bedpan Diaper Diaper Diaper Incontinent Incontinent Incontinent External Catheter External Catheter External Catheter # Voids 1 - Labs CBC & Chem 7: 12/11/22 06:58 12/11/22 06:58 Labs: Abnormal Lab Results - Last 24 Hours (Table) 10/23/23 10/24/23 Range/Units 14:29 06:58 RBC 4.03 L (4.10-5.20) X 10*6/uL Hgb 8.7 L (12.0-15.0) d/dL Hct 29.9 L (37.2-46.3) % MCV 74.2 L (80.0-97.0) FL MCH 21.6 L (27.0-32.0) pg MCHC 29.1 L (32.0-37.0) d/dL RDW 26.5 H (11.5-14.5) % Eosinophils # 0.48 H (0.04-0.35) X 10*3/uL Crossmatch See Detail
--- NOTE | 2022-12-11 15:43 | P.PN ---
Subjective Progress Note Date: 12/11/22 Physical pleasant 72-year-old female with medical history of asthma, COPD, gastroesophageal reflux disease, pulmonary embolism and DVTs patient is anticoagulated with warfarin and her INR is 2.9 on admission. Patient presents due to an episode of dizziness and fall when she was walking out of her bathr oom. Patient did hit her head and she does have a laceration on the back of her head which is stapled. Patient denied losing consciousness. She denies a history of any bloody emesis no nausea vomiting or diarrhea she does state that her stools are darker in color due to taking Metamucil on a daily basis. She states that she's worked up in the past for GI bleed. On admission patient found to have a hemoglobin of 6.7 she is currently using 1 unit of blood it is likely that the presyncopal episode was due to the anemia. Patient will be monitored overnight we will check a B12 and folate. And iron studies. She did receive a tetanus vaccination in the ER. 12/08/2022 Patient is evaluated today resting in bed. Does continue to report dizziness although improving. Having some epigastric abdominal pain and tenderness on palpation. Requesting surgery consultation for possible EGD. Hemoglobin up to 7.6 today. 12/09/2022 Patient is evaluated today resting in bed. Reports dizziness described as room spinning and has history of vertigo; meclizine will be added and PT/OT are on consultation. Patient reports the abdominal discomfort is improving she is continued on protonix BID. Hemoglobin remains stable and patient denies any bloody or dark stool. Hemoglobin 7.1. Patient is status post 1 unit of PRBC. INR today 2.5 and warfarin remains on hold. 12/11/2022 Patient is seen and evaluated in follow-up status post general surgery evaluation with EGD showing gastritis and hiatal hernia. Hemoglobin is improved above 8 today with no active bleeding noted. Patient reports tolerating diet and slowly being advanced and patient is maintained on Protonix twice daily. Patient being evaluated by physical therapy although continues to report dizziness and was on meclizine as needed. We'll transition to meclizine scheduled 3 times a day and monitor for improvements with follow-up PT/OT therapy evaluation tomorrow. Patient has been cleared for discharge by general surgery when medically stable. Patient reporting significant weakness and dizziness and inability to ambulate and concerned on going home and falling again. Patient is currently afebrile with no reports of chest pain or shortness of breath. Patient is tolerating diet with no reported nausea or vomiting. Review of Systems Constitutional: Denied any fatigue denied any fever. Cardio vascular: denied any chest pain, palpitations Gastrointestinal: denied any nausea, vomiting, denies diarrhea reports improvement in abdominal tenderness Pulmonary: Denied any shortness of breath cough Neurologic reports continued dizziness and unsteady on her feet with weakness All inpatient medications were reviewed and appropriate changes in these medications as dictated in the interval history and assessment and plan. PHYSICAL EXAMINATION: GENERAL: The patient is alert and oriented x3,Well developed, well nourished. Morbidly obese HEENT: Pupils are round and equally reacting to light. EOMI. No scleral icterus. No conjunctival pallor. Normocephalic, atraumatic. No pharyngeal erythema. No thyromegaly. CARDIOVASCULAR: S1 and S2 muffled PULMONARY: Chest is clear to auscultation, no wheezing or crackles. ABDOMEN: Soft, nontender, nondistended, normoactive bowel sounds. No palpable organomegaly. MUSCULOSKELETAL: No joint swelling or deformity. EXTREMITIES: No cyanosis, clubbing, or pedal edema. NEUROLOGICAL: Gross neurological examination did not reveal any focal deficits. Diffusely weak with continued dizziness with ambulation SKIN: No rashes. Assessment: Presyncope and fall with trauma likely due to anemia Epigastric tenderness likely gastritis Anemia, possibly GI bleed secondary to gastritis and hiatal hernia Head laceration secondary to fall, which has been stapled. 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 Hemoglobin is improved and is above 8 with no active bleeding noted Patient continues on IV protonix BID. General surgery evaluated post EGD showing hiatal hernia and acute gastritis recommend continue Protonix Meclizine was on for as-needed basis for continued dizziness and will transition to meclizine scheduled and follow up on PT/OT therapy evaluation again tomorrow. Orthostatic vitals ordered and negative Encouraged increased activity as tolerated and sitting up out of the bed more often Gen. surgery has cleared the patient for discharge Hold warfarin and will follow-up with general surgery and when to resume PT/OT evaluation again in the a.m. with possible discharge planning in 24 hours. Patient reports planning on going home with family Due to multiple complex medical issues, prognosis is guarded The impression and plan of care has been dictated by Carolyn Velasquez, Nurse Pr actitioner as directed. Dr. Ulices MD I have performed a history and examination and MDM of this patient, discussed the same with the dictator, and agree with the dictator's assessment and plan as written ,documented as a scribe. Based on total visit time, I have performed more than 50% of the visit. Objective - Vital Signs Vital signs: Vital Signs Temp 99.8 F H 12/11/22 12:07 Pulse 92 12/11/22 15:19 Resp 18 12/11/22 12:07 BP 147/73 12/11/22 12:06 Pulse Ox 95 12/11/22 07:30 FiO2 Intake & Output 12/10/22 12/11/22 12/11/22 18:59 06:59 18:59 Intake Total 100 283 Output Total 900 Balance 100 -617 Intake: IV 100 Blood Product 0 283 Rc Pheresis 2 As3 Unit 0 283 [id number] Output: Urine 900 Other: Voiding Method Bedpan Bedpan Bedpan Diaper Diaper Diaper Incontinent Incontinent Incontinent External Catheter External Catheter External Catheter # Voids 1 - Labs CBC & Chem 7: 12/11/22 06:58 12/11/22 06:58 Labs: Abnormal Lab Results - Last 24 Hours (Table) 12/10/22 12/11/22 Range/Units 14:29 06:58 RBC 4.03 L (4.10-5.20) X 10*6/uL Hgb 8.7 L (12.0-15.0) d/dL Hct 29.9 L (37.2-46.3) % MCV 74.2 L (80.0-97.0) FL MCH 21.6 L (27.0-32.0) pg MCHC 29.1 L (32.0-37.0) d/dL RDW 26.5 H (11.5-14.5) % Eosinophils # 0.48 H (0.04-0.35) X 10*3/uL Crossmatch See Detail
--- NOTE | 2022-12-11 17:54 | P.CONS ---
History of Present Illness - Reason for Consult Consult date: 12/11/22 Hx hypercoaguable condition, DVT/PE, acute bleeding Requesting physician: Alex Elena - Chief Complaint weakness, fall - History of Present Illness Ms. Toro is a female patient of Dr. Coates initially seen in consult 12/30/23 microcytic anemia, hemoglobin 6.4, MCV 76.2. Patient was symptomatic. She received transfusions. EGD and colonoscopy revealed some diverticulosis, no H. pylori or malignancy. She was discharged on oral iron. Patient was on warfarin at time of admission, INR was 3.2. She was on for DVT right lower extremity and PE, diagnosed 6 months prior, [facility], transferred to [place] in [place]. No provoking factor was identified. DO ACS were used but unable to be tolerated because of GI side effects so, she was continued on wa rfarin. She had hypercoagulable workup done, the positive for factor V Leiden mutation, patient was instructed to stay on anticoagulation indefinitely. He was recommended that she have her INR monitored, CBC monitored and iron studies monitored. She was last seen 09/26/20. Patient has a past medical history of asthma, GERD, she presented to the ER because of dizziness and a fall. She hit her head, had a laceration that was stapled. She denied any nosebleeds or other bleeding. She is reporting taking oral iron for some time once daily. INR was 2.9 on admit, now today it is 1.4. Hemoglobin was 6.7 on admit, she received 2 units PRBCs, hemoglobin 7.2 currently. She is being worked up for GI bleed. Review of Systems 10 point ROS is neg except as stated in HPI Past Medical History Past Medical History: Asthma, COPD, Deep Vein Thrombosis (DVT), GERD/Reflux, Pulmonary Embolus (PE) Additional Past Medical History / Comment(s): hx- hiatal hernia, colitis and loose watery stools, DVTs with PE(patient takes Coumadin) History of Any Multi-Drug Resistant Organisms: None Reported Past Surgical History: Adenoidectomy, Breast Surgery, Section, Tonsillectomy Additional Past Surgical History / Comment(s): alia oophorectomy, Past Anesthesia/Blood Transfusion Reactions: Motion Sickness Additional Past Anesthesia/Blood Transfusion Reaction / Comm: Patient has received blood transfusions with no reaction. Past Psychological History: No Psychological Hx Reported Smoking Status: Never smoker Past Alcohol Use History: Occasional Past Drug Use History: None Reported - Past Family History Mother Family Medical History: No Reported History Medications and Allergies Home Medications Medication Instructions Recorded Confirmed Type Warfarin Sodium 3 mg PO SUTUWETHFRSA@209912/30/19 12/07/22 History Fluticasone Propion/Salmeterol 1 puff INHALATION RT-HS 03/22/21 12/07/22 History [Advair 250-50 Diskus] Warfarin Sodium 6 mg PO MO@209903/22/21 12/07/22 History Allergies Allergy/AdvReac Type Severity Reaction Status Date / Time Iodinated Contrast Media Allergy Rash/Hives Verified 12/07/22 12:19 [Iodinated Contrast Media - IV Dye] Iodine and Iodide Containing Allergy Rash/Hives Verified 12/07/22 12:19 Produc Penicillins Allergy Rash/Hives Verified 12/07/22 12:19 Physical Exam Vitals: Vital Signs Temp Pulse Pulse Resp BP BP Pulse Ox 12/11/22 07:46 88 12/11/22 07:36 92 12/11/22 07:30 98.3 F 95 18 142/81 95 12/11/22 01:39 98.7 F 89 18 144/69 93 L 12/10/22 20:20 97.5 F L 93 16 135/73 90 L 12/10/22 18:57 99 F 106 H 16 136/70 92 L 12/10/22 18:37 100 16 12/10/22 18:27 109 H 16 12/10/22 18:12 97.8 F 109 H 17 147/75 94 L 12/10/22 17:52 97.4 F L 88 17 120/61 94 L 12/10/22 15:34 100 12/10/22 15:25 104 H 12/10/22 13:08 98.4 F 77 20 145/79 95 12/10/22 11:33 84 12/10/22 11:21 80 12/10/22 11:13 87 134/78 99 12/10/22 10:58 86 132/67 96 12/10/22 10:43 84 128/64 98 12/10/22 10:27 94 122/64 98 12/10/22 10:12 95 131/71 99 Intake and Output 12/10/22 12/11/22 12/11/22 22:59 06:59 14:59 Intake Total 283 Output Total 900 Balance 283 -900 Intake: Blood Product 283 Rc Pheresis 2 As3 Unit 283 [id number] Output: Urine 900 Other: Voiding Method Bedpan Diaper Incontinent External Catheter - Constitutional General appearance: cooperative, no acute distress, obese - EENT Eyes: anicteric sclerae, EOMI ENT: hearing grossly normal - Neck Neck: no lymphadenopathy - Respiratory Respiratory: bilateral: CTA - Cardiovascular Rhythm: regular Heart sounds: normal: S1, S2 Abnormal Heart Sounds: no systolic murmur, no diastolic murmur, no rub, no S3 Gallop, no S4 Gallop, no click, no other leg Peripheral Edema: bilateral: Trace - Gastrointestinal General gastrointestinal: no absent bowel sounds, no decreased bowel sounds, no distended, no hepatomegaly, no hyperactive bowel sounds, normal bowel sounds, no organomegaly, no rigid, no scaphoid, soft, no splenomegaly, no tenderness, no umbilical hernia, no ventral hernia - Integumentary bruises/ecchymosis on arms - Neurologic Neurologic: CNII-XII intact (grossly) - Musculoskeletal Musculoskeletal: generalized weakness, strength equal bilaterally - Psychiatric flat affect, uncertain of ability to comprehend her complex medical condition Psychiatric: A&O x's 3 Results CBC & Chem 7: 12/11/22 06:58 12/11/22 06:58 Labs: Abnormal Lab Results - Last 24 Hours (Table) 12/10/22 12/10/22 Range/Units 08:30 14:29 PT 14.8 H (10.0-12.5) sec INR 1.4 H (<1.2) Crossmatch See Detail Chest x-ray: report reviewed CT Scan - head: report reviewed Assessment and Plan (1) Fall Current Visit: Yes Status: Acute Priority: High Code(s): W19.XXXA - UNSPECIFIED FALL, INITIAL ENCOUNTER SNOMED Code(s): 8669981 (2) Microcytic anemia Current Visit: Yes Status: Chronic Priority: Medium Code(s): D50.9 - IRON DEFICIENCY ANEMIA, UNSPECIFIED SNOMED Code(s): 736042231 (3) B12 deficiency anemia Current Visit: Yes Status: Acute Priority: Medium Code(s): D51.9 - VITAMIN B12 DEFICIENCY ANEMIA, UNSPECIFIED SNOMED Code(s): 03216996 Plan: Microcytic, Hypochromic anemia -B12 level 182, B12 supplement started -Ferritin, sat, iron levels low. Parenteral iron initiated. Ok to stop oral iron for now as it bothers pt stomach. Pt iron deficit, based on admitting Hgb prior to transfusions, is about 1650mg. -Pt reluctant to have colonoscopy, "made me very sick". Despite support from staff being available pt still refused. Pt was informed of risk vs benefits of her situation: Have to hold anticoagulation until Hgb stabilizes. Pt has a clotting disorder and needs to be on lifelong anticoagulation so, complete endoscopic work up is recommended to potentially identify source of bleeding or if there is agreater problem such as malignancy. If a source is identified, it can be treated then blood thinners can be resumed, with close monitoring of Hgb and INR. If no endoscopy then will wait for Hgb to stabilize, anticoagulation can be restarted, close monitoring of Hgb and for bleeding. Recommend close monitoring of Hgb and INR, and iron studies. -CT abd without contrast ordered to eval for possible retroperitoneal bleeding after a fall. Dr clintonests: I have seen and examined pt, performed H&P, developed impression and plan of care. Discussed with dictator. Agree with documentation, dictated as a scribe. Time with Patient: Greater than 30
[2022-12-12] MEDS: IPRATROPIUM-ALBUTEROL 3 ML NEB INHALATION SCH ×4 (07:24→19:47)
[2022-12-12] MEDS: SYMBICORT 80-4.5 MCG INHALER INHALATION SCH ×2 (07:24→19:47)
[2022-12-12] MEDS: PANTOPRAZOLE 40 MG/10 ML VIAL IVP SCH ×2 (08:28→21:11)
[2022-12-12] MEDS: SODIUM FERRIC GLUCONAT-SUCROSE 125 MG in SODIUM CHLORIDE 0.9% 100 ML IVPB SCH (08:28)
[2022-12-12] MEDS: MECLIZINE 12.5 MG TAB PO SCH ×3 (08:28→21:11)
[2022-12-12] MEDS: CYANOCOBALAMIN 1,000 MCG/ML 1 ML VIAL IM SCH (08:28)
[2022-12-12 10:27] LABS: HCT 30.9 % (37.2-46.3); HGB 8.9 d/dL (12.0-15.0); MCH 21.7 pg (27.0-32.0); MCHC 28.8 d/dL (32.0-37.0); MCV 75.4 FL (80.0-97.0); Mean Platelet Volume 9.8 FL (9.5-12.2); NRBC Per 100 WBC 0 X 10*3/uL (0.00-0.01); Platelet Count 322 X 10*3/uL (140-440); RDW 28.1 % (11.5-14.5); WBC 6.55 X 10*3/uL (4.50-10.00)
--- NOTE | 2022-12-12 15:03 | P.PN ---
Subjective Progress Note Date: 12/12/22 Principal diagnosis: anemia, lifelong anticoagulation factor V In f/u pt denies any bleeding, N,V. Objective - Vital Signs Vital signs: Vital Signs Temp 98 F 12/12/22 07:58 Pulse 90 12/12/22 07:58 Resp 18 12/12/22 07:58 BP 124/84 12/12/22 07:58 Pulse Ox 92 L 12/12/22 07:58 FiO2 Intake & Output 12/11/22 12/12/22 12/12/22 18:59 06:59 18:59 Output Total 500 350 Balance -500 -350 Output: Urine 500 350 Other: Voiding Method Bedpan Bedpan Diaper Diaper Incontinent Incontinent External Catheter External Catheter # Voids 1 1 # Bowel Movements 1 1 - Constitutional General appearance: Present: cooperative, no acute distress, obese - EENT Eyes: Present: anicteric sclerae, EOMI ENT: Present: hearing grossly normal - Respiratory Details: Respirations even and unlabored at rest - Psychiatric Psychiatric Comment(s): Flat affect Psychiatric: Present: A&O x's 3 - Labs CBC & Chem 7: 12/12/22 05:23 12/11/22 06:58 Labs: Abnormal Lab Results - Last 24 Hours (Table) 12/11/22 Range/Units 06:58 RBC 4.03 L (4.10-5.20) X 10*6/uL Hgb 8.7 L (12.0-15.0) d/dL Hct 29.9 L (37.2-46.3) % MCV 74.2 L (80.0-97.0) FL MCH 21.6 L (27.0-32.0) pg MCHC 29.1 L (32.0-37.0) d/dL RDW 26.5 H (11.5-14.5) % Eosinophils # 0.48 H (0.04-0.35) X 10*3/uL - Imaging and Cardiology CT scan - abdomen: report reviewed CT scan - pelvis: report reviewed Assessment and Plan (1) Fall Current Visit: Yes Status: Acute Priority: High Code(s): W19.XXXA - UNSPECIFIED FALL, INITIAL ENCOUNTER SNOMED Code(s): 3924006 (2) Microcytic anemia Current Visit: Yes Status: Chronic Priority: Medium Code(s): D50.9 - IRON DEFICIENCY ANEMIA, UNSPECIFIED SNOMED Code(s): 071754087 (3) B12 deficiency anemia Current Visit: Yes Status: Acute Priority: Medium Code(s): D51.9 - VITAMIN B12 DEFICIENCY ANEMIA, UNSPECIFIED SNOMED Code(s): 86797185 Plan: Microcytic, Hypochromic anemia -B12 level 182, B12 supplement started -Ferritin, sat, iron levels low. Parenteral iron initiated. Ok to stop oral iron for now as it bothers pt stomach. Pt iron deficit, based on admitting Hgb, prior to transfusions, deficit is about 1650mg. Agree with IV iron daily while pt inpt. Will set up f/u Hgb and iron monitoring appt outpt, not sure if pt will be able to get to appts -Pt had EGD, no gross bleeding, hiatial hernia and mild gastritis. Pt refuses colonscopy. -CT AP without contrast, no evidence of hematoma or retroperitoneal bleeding. -Hgb stable since transfusions, Hgb 8.9 today. Transfuse for Hgb <7 -Discussed case with IM FLOCCULATOR OPERATOR. Going to resume coumadin and monitor Hgb
[2022-12-12] MEDS: BACITRACIN ZINC 500 UNIT/GM OINT 28.4 GM TUBE TOPICAL SCH ×2 (16:00→21:11)
--- NOTE | 2022-12-12 16:59 | P.PN ---
Subjective Progress Note Date: 12/12/22 Physical pleasant 72-year-old female with medical history of asthma, COPD, gastroesophageal reflux disease, pulmonary embolism and DVTs patient is anticoagulated with warfarin and her INR is 2.9 on admission. Patient presents due to an episode of dizziness and fall when she was walking out of her bathr oom. Patient did hit her head and she does have a laceration on the back of her head which is stapled. Patient denied losing consciousness. She denies a history of any bloody emesis no nausea vomiting or diarrhea she does state that her stools are darker in color due to taking Metamucil on a daily basis. She states that she's worked up in the past for GI bleed. On admission patient found to have a hemoglobin of 6.7 she is currently using 1 unit of blood it is likely that the presyncopal episode was due to the anemia. Patient will be monitored overnight we will check a B12 and folate. And iron studies. She did receive a tetanus vaccination in the ER. 12/08/2022 Patient is evaluated today resting in bed. Does continue to report dizziness although improving. Having some epigastric abdominal pain and tenderness on palpation. Requesting surgery consultation for possible EGD. Hemoglobin up to 7.6 today. 12/09/2022 Patient is evaluated today resting in bed. Reports dizziness described as room spinning and has history of vertigo; meclizine will be added and PT/OT are on consultation. Patient reports the abdominal discomfort is improving she is continued on protonix BID. Hemoglobin remains stable and patient denies any bloody or dark stool. Hemoglobin 7.1. Patient is status post 1 unit of PRBC. INR today 2.5 and warfarin remains on hold. 12/11/2022 Patient is seen and evaluated in follow-up status post general surgery evaluation with EGD showing gastritis and hiatal hernia. Hemoglobin is improved above 8 today with no active bleeding noted. Patient reports tolerating diet and slowly being advanced and patient is maintained on Protonix twice daily. Patient being evaluated by physical therapy although continues to report dizziness and was on meclizine as needed. We'll transition to meclizine scheduled 3 times a day and monitor for improvements with follow-up PT/OT therapy evaluation tomorrow. Patient has been cleared for discharge by general surgery when medically stable. Patient reporting significant weakness and dizziness and inability to ambulate and concerned on going home and falling again. Patient is currently afebrile with no reports of chest pain or shortness of breath. Patient is tolerating diet with no reported nausea or vomiting. 12/12/2022 Patient is seen in follow-up today reporting her dizziness is improved and will continue on meclizine scheduled. Hematology following as well and will follow- up with INR and resume Coumadin. Patient has been cleared by general surgery for discharge and will continue on Protonix for now. Patient did have an IV in the right hand that has some increasing redness and was removed will initiate IV cefazolin and consult infectious disease and appreciate input and recommendations. Recommend continue with warm compresses 3 times a day to the right hand and will likely discharge in 24 hours. Review of Systems Constitutional: Denied any fatigue denied any fever. Cardio vascular: denied any chest pain, palpitations Gastrointestinal: denied any nausea, vomiting, denies diarrhea reports impr ovement in abdominal tenderness Pulmonary: Denied any shortness of breath cough Neurologic reports dizziness is improving, reports right hand pain and redness at a pre-existing IV site All inpatient medications were reviewed and appropriate changes in these medications as dictated in the interval history and assessment and plan. PHYSICAL EXAMINATION: GENERAL: The patient is alert and oriented x3,Well developed, well nourished. Morbidly obese HEENT: Pupils are round and equally reacting to light. EOMI. No scleral icterus. No conjunctival pallor. Normocephalic, atraumatic. No pharyngeal erythema. No thyromegaly. CARDIOVASCULAR: S1 and S2 muffled PULMONARY: Chest is clear to auscultation, no wheezing or crackles. ABDOMEN: Soft, nontender, nondistended, normoactive bowel sounds. No palpable organomegaly. MUSCULOSKELETAL: No joint swelling or deformity. EXTREMITIES: No cyanosis, clubbing, or pedal edema. Right hand with redness noted that pre-existing IV site that was removed this morning NEUROLOGICAL: Gross neurological examination did not reveal any focal deficits. Improvement in dizziness and weakness SKIN: No rashes. Assessment: Presyncope and fall with trauma likely due to anemia Epigastric tenderness likely gastritis Anemia, secondary to gastritis and hiatal hernia Head laceration secondary to fall, which has been stapled. Right hand cellulitis secondary to recent IV site Microcytic Anemia with underlying iron deficiency Hx of asthma/COPD no acute exacerbation History of PE/DVT on warfarin INR therapeutic at 2.9 History of factor 5 deficiency Morbid obesity with a BMI of 42.1 Gastroesophageal reflux disease GI prophylaxis DVT prophylaxis on warfarin Plan: Monitor hemoglobin and transfuse blood for hgb <7. Hemoglobin is improved and is above 8 with no active bleeding noted Patient continues on IV protonix BID. General surgery evaluated post EGD showing hiatal hernia and acute gastritis recommend continue Protonix Meclizine scheduled and patient reports her dizziness is improving and working with physical therapy. Patient did have pre-existing IV site in the right hand that was removed that appears minimally swollen with some erythema noted and will start IV cefazolin and also consult infectious disease and appreciate input and recommendations. IV was removed and will continue with warm compresses to the hand 3 times daily and bacitracin Encourage the patient to avoid itching and scratching at the site as she has been picking at it per nursing staff Encouraged increased activity as tolerated and getting up out of the bed more often Gen. surgery has cleared the patient for discharge Discussed with hematology and patient will need to continue Coumadin and will follow-up with PT/INR with pharmacy to dose and resume Coumadin Possible discharge planning in 24 hours. Patient reports planning on going home with family Due to multiple complex medical issues, prognosis is guarded The impression and plan of care has been dictated by Carolyn Velasquez, Nurse Practitioner as directed. Dr. Ulices MD I have performed a history and examination and MDM of this patient, discussed the same with the dictator, and agree with the dictator's assessment and plan as written ,documented as a scribe. Based on total visit time, I have performed more than 50% of the visit. Objective - Vital Signs Vital signs: Vital Signs Temp 98.3 F 12/12/22 12:43 Pulse 84 12/12/22 14:57 Resp 17 12/12/22 12:43 BP 109/67 12/12/22 12:43 Pulse Ox 94 L 12/12/22 12:43 FiO2 Intake & Output 12/11/22 12/12/22 12/12/22 18:59 06:59 18:59 Output Total 500 350 Balance -500 -350 Output: Urine 500 350 Other: Voiding Method Bedpan Bedpan Bedpan Diaper Diaper Diaper Incontinent Incontinent Incontinent External Catheter External Catheter External Catheter # Voids 1 1 # Bowel Movements 1 1 - Labs CBC & Chem 7: 12/12/22 05:23 12/11/22 06:58 Labs: Abnormal Lab Results - Last 24 Hours (Table) 12/12/22 Range/Units 05:23 Hgb 8.9 L (12.0-15.0) d/dL Hct 30.9 L (37.2-46.3) % MCV 75.4 L (80.0-97.0) FL MCH 21.7 L (27.0-32.0) pg MCHC 28.8 L (32.0-37.0) d/dL RDW 28.1 H (11.5-14.5) %
[2022-12-12 18:04] LABS: Prothrombin Time 10.8 sec (10.0-12.5)
--- NOTE | 2022-12-12 22:25 | P.CONS ---
History of Present Illness - Reason for Consult Consult date: 12/12/22 - History of Present Illness Patient is a 72-year-old female with a past medical history significant for COPD reflux DVT PE patient was brought into the hospital 5 days ago after apparently patient felt dizzy and fell in the bathroom hitting her head patient did have a laceration to the scalp and mild headache with the similar patient was evaluated and admitted to the hospital patient on presentation to hospital was afebrile she did have a low-grade fever of 99.8 degrees on hide yesterday afternoon the patient was noticed to have a significant pain swelling redness to the right hand/wrist area IV that was p laced on admission the IV was discontinued patient was started on cefazolin today infectious he was consulted for further management of antibiotic therapy patient currently denies having any fever or any chills she has been complaining of pain to the right hand and wrist area with the patient did have swelling redness from the IV describing to be more of a dull aching to sharp moderate intensity without limitation and denies having any drainage patient did have a normal white was 6.5-creatinine is 0.8 Past Medical History Past Medical History: Asthma, COPD, Deep Vein Thrombosis (DVT), GERD/Reflux, Pulmonary Embolus (PE) Additional Past Medical History / Comment(s): hx- hiatal hernia, colitis and loose watery stools, DVTs with PE(patient takes Coumadin) History of Any Multi-Drug Resistant Organisms: None Reported Past Surgical History: Adenoidectomy, Breast Surgery, Section, Tonsillectomy Additional Past Surgical History / Comment(s): alia oophorectomy, Past Anesthesia/Blood Transfusion Reactions: Motion Sickness Additional Past Anesthesia/Blood Transfusion Reaction / Comm: Patient has received blood transfusions with no reaction. Past Psychological History: No Psychological Hx Reported Smoking Status: Never smoker Past Alcohol Use History: Occasional Past Drug Use History: None Reported - Past Family History Mother Family Medical History: No Reported History Medications and Allergies Home Medications Medication Instructions Recorded Confirmed Type Warfarin Sodium 3 mg PO SUTUWETHFRSA@209912/30/19 12/07/22 History Fluticasone Propion/Salmeterol 1 puff INHALATION RT-HS 03/22/21 12/07/22 History [Advair 250-50 Diskus] Warfarin Sodium 6 mg PO MO@209903/22/21 12/07/22 History Allergies Allergy/AdvReac Type Severity Reaction Status Date / Time Iodinated Contrast Media Allergy Rash/Hives Verified 12/07/22 12:19 [Iodinated Contrast Media - IV Dye] Iodine and Iodide Containing Allergy Rash/Hives Verified 12/07/22 12:19 Produc Penicillins Allergy Rash/Hives Verified 12/07/22 12:19 Physical Exam Vitals: Vital Signs Temp Pulse Pulse Pulse Resp BP BP 12/12/22 10:46 88 12/12/22 10:33 92 12/12/22 08:45 95 90 18 12/12/22 07:58 98 F 90 18 124/84 12/12/22 07:42 98 F 90 18 124/84 12/12/22 07:37 88 12/12/22 07:24 88 12/12/22 02:28 99 F 89 18 145/70 12/11/22 22:08 88 12/11/22 21:57 84 12/11/22 19:10 99 F 90 18 122/72 12/11/22 15:19 92 12/11/22 15:09 88 12/11/22 14:20 98.9 F 90 16 133/72 Pulse Ox 12/12/22 10:46 12/12/22 10:33 12/12/22 08:45 12/12/22 07:58 92 L 12/12/22 07:42 92 L 12/12/22 07:37 12/12/22 07:24 12/12/22 02:28 94 L 12/11/22 22:08 12/11/22 21:57 12/11/22 19:10 95 12/11/22 15:19 12/11/22 15:09 12/11/22 14:20 98 Intake and Output 12/11/22 12/12/22 12/12/22 22:59 06:59 14:59 Output Total 500 350 Balance -500 -350 Output: Urine 500 350 Other: Voiding Method Bedpan Bedpan Diaper Diaper Incontinent Incontinent External Catheter External Catheter # Voids 1 # Bowel Movements 1 1 Results CBC & Chem 7: 12/12/22 05:23 12/11/22 06:58 Labs: Abnormal Lab Results - Last 24 Hours (Table) 12/12/22 Range/Units 05:23 Hgb 8.9 L (12.0-15.0) d/dL Hct 30.9 L (37.2-46.3) % MCV 75.4 L (80.0-97.0) FL MCH 21.7 L (27.0-32.0) pg MCHC 28.8 L (32.0-37.0) d/dL RDW 28.1 H (11.5-14.5) % Assessment and Plan Plan: 1patient with right hand IV site phlebitis/cellulitis likely from gram-positive skin radha with the clinic suspicion for deep infection in this patient with no fever or elevated white count 2-marked treated redness 3-continue cefazolin 2 g every 8 hours We will follow on clinical condition and cultures to further adjust medication if needed Thank you for this consultation we will follow the patient along with you Dictation was produced using [employer] dictation software. please excuse any grammatical, word or spelling errors. Time with Patient: Greater than 30
[2022-12-13 07:39] LABS: African American GFR (CKD) 85 (>60 ml/min/1.73 sqM); Anion Gap 8 mmol/L; Blood Urea Nitrogen 20 mg/dL (7-17); Calcium 8.7 mg/dL (8.4-10.2); Carbon Dioxide 21 mmol/L (22-30); Chloride 107 mmol/L (98-107); Glucose 77 mg/dL (74-99); Non-African American GFR(CKD) 74 (>60 ml/min/1.73 sqM); Potassium 4.2 mmol/L (3.5-5.1); Sodium 136 mmol/L (137-145)
[2022-12-13] MEDS: IPRATROPIUM-ALBUTEROL 3 ML NEB INHALATION SCH ×3 (08:37→15:28)
[2022-12-13] MEDS: SYMBICORT 80-4.5 MCG INHALER INHALATION SCH (08:37)
[2022-12-13] MEDS: BACITRACIN ZINC 500 UNIT/GM OINT 28.4 GM TUBE TOPICAL SCH (09:13)
[2022-12-13] MEDS: CYANOCOBALAMIN 1,000 MCG/ML 1 ML VIAL IM SCH (09:23)
[2022-12-13] MEDS: PANTOPRAZOLE 40 MG/10 ML VIAL IVP SCH (09:23)
[2022-12-13] MEDS: MECLIZINE 12.5 MG TAB PO SCH (09:23)
[2022-12-13 10:47] LABS: Basophils # (A) 0.04 X 10*3/uL (0.00-0.10); Basophils % (A) 0.6 %; Eosinophils # (A) 0.57 X 10*3/uL (0.04-0.35); Eosinophils % (A) 7.9 %; HCT 31.4 % (37.2-46.3); HGB 9.1 d/dL (12.0-15.0); Lymphocytes # (A) 1.42 X 10*3/uL (0.90-5.00); Lymphocytes % (A) 19.8 %; MCH 22.3 pg (27.0-32.0); Mean Platelet Volume 10.1 FL (9.5-12.2); Monocytes # (A) 0.74 X 10*3/uL (0.20-1.00); Monocytes % (A) 10.3 %; NRBC Per 100 WBC 0.04 X 10*3/uL (0.00-0.01); Neutrophils # (A) 4.37 X 10*3/uL (1.80-7.70); Neutrophils % (A) 60.8 %; Platelet Count 322 X 10*3/uL (140-440); RBC 4.08 X 10*6/uL (4.10-5.20); RDW 29.3 % (11.5-14.5); WBC 7.18 X 10*3/uL (4.50-10.00)
[2022-12-13] MEDS: SODIUM FERRIC GLUCONAT-SUCROSE 125 MG in SODIUM CHLORIDE 0.9% 100 ML IVPB SCH (10:57)
[2022-12-13 11:49] LABS: INR 1.05 sec (0.93-1.11); Prothrombin Time 11.3 sec (9.9-11.9)
[2022-12-13 13:15] VITALS: RESP 19; TEMP 97.7
[2022-12-13 14:00] VITALS: BP 137/78; PULSE 120
[2022-12-13 16:06] VITALS: BMI 42.0
[2022-12-13] MEDS ORDERED: WARFARIN 2 MG TAB PO ONE (18:00)
--- NOTE | 2022-12-13 20:46 | P.PN ---
Subjective Progress Note Date: 12/13/22 Principal diagnosis: anemia, lifelong anticoagulation factor V In f/u pt denies any bleeding, she is ambulating, no other acute c/o. Objective - Vital Signs Vital signs: Vital Signs Temp 97.7 F 12/13/22 13:50 Pulse 98 12/13/22 13:50 Resp 19 12/13/22 13:50 BP 135/78 12/13/22 13:50 Pulse Ox 98 12/13/22 13:50 FiO2 Intake & Output 12/12/22 12/13/22 12/13/22 18:59 06:59 18:59 Intake Total 590 Output Total 200 300 400 Balance -200 290 -400 Intake: Oral 590 Output: Urine 200 300 400 Other: Voiding Method Bedpan Bedpan External Catheter Diaper Diaper Incontinent Incontinent External Catheter External Catheter # Voids 1 1 # Bowel Movements 1 - Constitutional General appearance: Present: cooperative, no acute distress, obese - EENT Eyes: Present: anicteric sclerae, EOMI ENT: Present: hearing grossly normal - Respiratory Details: resp even and unlabored - Peripheral edema leg Peripheral Edema: bilateral: 1+ - Neurologic Neurologic: Present: CNII-XII intact - Musculoskeletal Musculoskeletal: Present: generalized weakness, strength equal bilaterally - Psychiatric Psychiatric: Present: A&O x's 3, appropriate affect - Labs CBC & Chem 7: 12/13/22 05:28 12/13/22 05:28 Labs: Abnormal Lab Results - Last 24 Hours (Table) 12/13/22 12/13/22 Range/Units 05:28 05:28 RBC 4.08 L (4.10-5.20) X 10*6/uL Hgb 9.1 L (12.0-15.0) d/dL Hct 31.4 L (37.2-46.3) % MCV 77.0 L (80.0-97.0) FL MCH 22.3 L (27.0-32.0) pg MCHC 29.0 L (32.0-37.0) d/dL RDW 29.3 H (11.5-14.5) % Eosinophils # 0.57 H (0.04-0.35) X 10*3/uL NRBC/100 WBC Diff 0.04 H (0.00-0.01) X 10*3/uL Sodium 136 L (137-145) mmol/L Carbon Dioxide 21 L (22-30) mmol/L BUN 20 H (7-17) mg/dL Assessment and Plan (1) Fall Status: Acute Priority: High Code(s): W19.XXXA - UNSPECIFIED FALL, INITIAL ENCOUNTER SNOMED Code(s): 6620195 (2) Microcytic anemia Status: Chronic Priority: Medium Code(s): D50.9 - IRON DEFICIENCY ANEMIA, UNSPECIFIED SNOMED Code(s): 867128883 (3) B12 deficiency anemia Status: Acute Priority: Medium Code(s): D51.9 - VITAMIN B12 DEFICIENCY ANEMIA, UNSPECIFIED SNOMED Code(s): 13786329 Plan: Microcytic, Hypochromic anemia -B12 level 182, B12 supplement started -Ferritin, sat, iron levels low. Parenteral iron initiated. Ok to stop oral iron for now as it bothers pt stomach. Pt iron deficit, based on admitting Hgb, prior to transfusions, deficit is about 1650mg. Agree with IV iron daily while pt inpt. Will set up f/u Hgb and iron monitoring appt outpt. Barrier to continuity of care-not sure if pt will be able to get to appts due to lack of transportation -Pt had EGD, no gross bleeding, hiatial hernia and mild gastritis. Pt refuses colonscopy. -CT AP without contrast, no evidence of hematoma or retroperitoneal bleeding. -Hgb stable since transfusions, Hgb 9.1 today. -Discussed case with IM ELECTRIC TRUCK OPERATOR. Coumadin resumed. Not certain who monitors INR
--- NOTE | 2022-12-14 15:03 | P.DS ---
Providers Date of admission: 12/07/22 11:42 Expected date of discharge: 12/13/22 Attending physician: Sea Jauregui MD Consults: 12/10/22 15:10 Consult Physician Routine Consulting Provider: Jac Coates Consult Reason/Comments: dvt pe, need for anticoagulation Do you want consulting provider notified?: Yes 12/12/22 12:06 Consult Physician Urgent Consulting Provider: Scarlet Daniel Consult Reason/Comments: right hand cellulitis from IV site Do you want consulting provider notified?: Yes Primary care physician: Stated None Hospital Course: Final diagnosis Presyncope and fall with trauma likely due to anemia Epigastric tenderness likely gastritis Anemia, secondary to gastritis and hiatal hernia Head laceration secondary to fall, which has been stapled. Right hand cellulitis secondary to recent IV site Microcytic Anemia with underlying iron deficiency Hx of asthma/COPD no acute exacerbation History of PE/DVT on warfarin History of factor 5 deficiency Morbid obesity with a BMI of 42.1 Gastroesophageal reflux disease GI prophylaxis DVT prophylaxis on warfarin Discharge disposition Patient is being discharged in a stable condition with guarded prognosis to home with home care. Patient will follow-up with Dr. Say Elena as well as hematology Dr. Coates in the outpatient setting upon discharge. Patient is to continue with Coumadin with close outpatient follow-up and repeat labs provided patient a follow-up with hematology as scheduled. Patient to continue on oral Keflex 3 times daily for 1 week and continue with warm compresses 3 times daily to the right hand and elevating while at rest. Patient also instructed to avoid picking and scratching at the site and use bacitracin twice daily. Total time taken is greater than 35 minutes. Hospital course This is a 72-year-old female who was recently admitted with anemia and dizziness with presyncopal event and fall requiring valerie to the head laceration. Patient with low hemoglobin seen and evaluated by general surgery underwent EGD although refuses colonoscopy. Showing hiatal hernia and gastritis. Hemoglobin stable and patient was evaluated by hematology okay to resume Coumadin and INRs currently 1.04 recommend close outpatient follow-up with repeat labs in 1-2 days and continue Coumadin. Patient is noncompliant and difficult to make appointments and currently does not have a primary care provider. Resources were provided on discharge. Patient having some dizziness which patient reported had been improving with meclizine and will continue scheduled 3 times a day and follow-up outpatient. Prescription provided as well to follow-up on hemoglobin levels in the next few days. Please refer to other consultation notes for further HPI. Patient was seen and evaluated by physical therapy and did well recommending home with home care. Currently no reports of chest pain, shortness of breath, or palpitations. Patient is afebrile. No reports of nausea or vomiting and patient is tolerating diet. Patient will be discharged home today. Guarded prognosis and high risk for readmission Physical exam: Gen: This is a 72-year-old female who is awake, alert and oriented 3, well- developed, well-nourished, morbidly obese HEENT: Head is atraumatic, normocephalic. Pupils equal, round. Sclerae is anicteric. NECK: Supple. No JVD. No lymphadenopathy. No thyromegaly. LUNGS: Clear to auscultation. No wheezes or rhonchi. No intercostal retractions. HEART: Regular rate and rhythm. No murmur. ABDOMEN: Soft. Bowel sounds are present. No masses. No tenderness. EXTREMITIES: No pedal edema. No calf tenderness. Right dorsal hand with some redness which is improving and site was marked with no worsening or induration noted. NEUROLOGICAL: Patient is awake, alert and oriented x3. Cranial nerves 2 through 12 are grossly intact. Please refer to medication reconciliation sheet for a list of medications. The impression and plan of care has been dictated by Carolyn Velasquez, Nurse Practitioner as directed. Dr. Ulices MD I have performed a history and examination and MDM of this patient, discussed the same with the dictator, and agree with the dictator's assessment and plan as written ,documented as a scribe. Based on total visit time, I have performed more than 50% of the visit. Patient Condition at Discharge: Stable Plan - Discharge Summary Discharge Rx Participant: Yes New Discharge Prescriptions: New Meclizine [Antivert] 12.5 mg PO Q8HR #60 tablet Cephalexin [Keflex] 500 mg PO Q8HR 7 Days #21 cap Cyiyknvt-Rcmryejuds-Zidr Oint [Triple Antibiotic Ointment] 1 applic TOPICAL DAILY #14 gm Continue Warfarin Sodium 3 mg PO SUTUWETHFRSA@2100 Fluticasone Propion/Salmeterol [Advair 250-50 Diskus] 1 puff INHALATION RT-HS Warfarin Sodium 6 mg PO MO@2099 Discharge Medication List Warfarin Sodium 3 mg PO SUTUWETHFRSA@209912/30/19 [History] Fluticasone Propion/Salmeterol [Advair 250-50 Diskus] 1 puff INHALATION RT-HS 03/22/21 [History] Warfarin Sodium 6 mg PO MO@209903/22/21 [History] Cephalexin [Keflex] 500 mg PO Q8HR 7 Days #21 cap 12/13/22 [Rx] Meclizine [Antivert] 12.5 mg PO Q8HR #60 tablet 12/13/22 [Rx] Qnshwbpx-Ghkyfaatnh-Hcmc Oint [Triple Antibiotic Ointment] 1 applic TOPICAL D AILY #14 gm 12/13/22 [Rx] Follow up Appointment(s)/Referral(s): Jac Coates [STAFF PHYSICIAN] - 4 Weeks (Please call office to sched an appt that works with patient schedule ) Gayla Cramer MD [STAFF PHYSICIAN] - 1 Week (Please call the office to schedule an appointment) Ambulatory/Diagnostic Orders: Complete Blood Count w/diff [LAB.AMB] Time Frame: 1 Day, Location: None Selected Patient Instructions/Handouts: Gastritis (DC), Cellulitis (ED), Anemia (DC), Fall Prevention (DC) Activity/Diet/Wound Care/Special Instructions: activity limited until follow up follow up with general surgery for possible outpatient colonoscopy follow up with hematology outpatient in one week establish with primary care provider on discharge continue coumadin and will need repeat labs in 1-2 days to monitor INR continue antibiotics as prescribed Prescriptions sent to [facility] in [place] Discharge Disposition: HOME SELF-CARE
== END 2022-12-13 18:08 | disposition home or self-care (01) | DRG 378 ==
LOC: EC 06:14 → 5NMEDONC 11:42
PROVIDERS: ADMIT Internal Medicine; ATTEND Internal Medicine
PROC: 30233N0 Transfusion of Autologous Red Blood Cells into Peripheral Vein, Percutaneous Approach (ICD-10-PCS; 2022-12-07)
PROC: 0DB78ZX Excision of Stomach, Pylorus, Via Natural or Artificial Opening Endoscopic, Diagnostic (ICD-10-PCS; 2022-12-10)
PROC: 0DB68ZX Excision of Stomach, Via Natural or Artificial Opening Endoscopic, Diagnostic (ICD-10-PCS; principal; 2022-12-10 07:30)
DX: K29.71 Gastritis, unspecified, with bleeding (principal); D62 Acute posthemorrhagic anemia; D68.51 Activated protein C resistance; J44.0 Chronic obstructive pulmonary disease with (acute) lower respiratory infection; L03.113 Cellulitis of right upper limb; Z68.41 Body mass index [BMI] 40.0-44.9, adult; K44.9 Diaphragmatic hernia without obstruction or gangrene; W19.XXXA Unspecified fall, initial encounter; D50.9 Iron deficiency anemia, unspecified; D51.9 Vitamin B12 deficiency anemia, unspecified; E66.01 Morbid (severe) obesity due to excess calories; I11.9 Hypertensive heart disease without heart failure; I25.10 Atherosclerotic heart disease of native coronary artery without angina pectoris; Z86.718 Personal history of other venous thrombosis and embolism; Z79.01 Long term (current) use of anticoagulants; Z86.711 Personal history of pulmonary embolism; K21.9 Gastro-esophageal reflux disease without esophagitis; S01.01XA Laceration without foreign body of scalp, initial encounter; Z91.199 Patient's noncompliance with other medical treatment and regimen due to unspecified reason; T82.7XXD Infection and inflammatory reaction due to other cardiac and vascular devices, implants and grafts, subsequent encounter
CPT/HCPCS: 12001; 36415; 36430; 43239; 70450; 71046; 72125; 74176; 80048; 80053; 81003; 82607; 82728; 82746; 83540; 83550; 83735; 83880; 84484; 85025; 85027; 85610; 85730; 86850; 86900; 86901; 86920; 87636; 88305; 90471; 90715; 93005; 94640; 94760; 96374; 96375; 99285

== ENCOUNTER → 2023-03-27 | Outpatient (CLI) | payer MEDICARE ==
--- NOTE | 2023-03-27 12:58 | US ---
EXAMINATION TYPE: US carotid duplex BILAT DATE OF EXAM: 03/27/2023 COMPARISON: NONE CLINICAL INDICATION: Female, 72 years old with history of R42 dizziness/giddiness; dizziness TECHNIQUE: Carotid duplex ultrasound examination. Indirect Doppler criteria was utilized. FINDINGS: EXAM MEASUREMENTS: RIGHT: Peak Systolic Velocity (PSV) cm/sec ----- Right CCA: 106.4 ----- Right ICA: 96.5 ----- Right ECA: 88.8 ICA/CCA ratio: 0.9 RIGHT: End Diastole cm/sec ----- Right CCA: 15.1 ----- Right ICA: 26.7 ----- Right ECA: 0.0 LEFT: Peak Systolic Velocity (PSV) cm/sec ----- Left CCA: 97.8 ----- Left ICA: 100.4 ----- Left ECA: 101.9 ICA/CCA ratio: 1.0 LEFT: End Diastole cm/sec ----- Left CCA: 25.4 ----- Left ICA: 31.8 ----- Left ECA: 5.1 VERTEBRALS (direction of flow): Right Vertebral: Antegrade Left Vertebral: Antegrade Rhythm: MACHINE OPERATORS NOTES: exam limited by deep tortuous vessels, elevated velocities at the proximal-mid rig ht CCA 2.7x1.2cm nodule noted at right thyroid IMPRESSION: 1. Less than 50% stenosis of the bilateral carotid bifurcations. 2. Right thyroid nodule. Consider follow-up thyroid ultrasound, last ultrasound 02/06/2019. Criteria for Assigning % of Stenosis / Diameter reduction (Estimation based on the indirect measurements of the internal carotid artery velocities (ICA PSV). 1. Normal (no stenosis)=ICA PSV < 125 cm/s: ratio < 2.0: ICA EDV<40 cm/s. 2. Less than 50% stenosis=ICA PSV < 125 cm/s: ratio < 2.0: ICA EDV<40 cm/s. 3. 50 to 69% stenosis=ICA PSV of 125 to 230 cm/s: ration 2.0 ? 4.0: ICA EDV 40-100 cm/s. 4. Greater than 70% stenosis to near occlusion= ICA PSV > 230 cm/s: ratio > 4.0: ICA EDV > 100 cm/s. 5. Near occlusion= ICA PSV velocities may be low or undetectable: variable ratio and ICA EDV. 6. Total occlusion=unable to detect flow.
== END | disposition home or self-care (01) ==
LOC: RADUSWWP 11:13
PROVIDERS: ATTEND Family Medicine
DX: R42 Dizziness and giddiness (principal); E04.1 Nontoxic single thyroid nodule
CPT/HCPCS: 93880

== ENCOUNTER → 2023-03-27 | Outpatient (CLI) | payer MEDICARE ==
--- NOTE | 2023-03-28 07:07 | CA ---
Transthoracic Echo Report Name: Gabriela Toro Age: 72 Gender: F : 1950 Exam Date: 03/27/2023 12:29 Exam Location: [facility] Ht (in): 62 Wt (lb): 160 Ordering Physician: Beverly Hernandez MD Attending/Referring Phys: Shoe Repair Cobbler Freda Lopez RDCS Procedure CPT: Indications: R42 dizziness/giddiness Cardiac Hx: Technical Quality: Fair Contrast 1: Total Dose (mL): Contrast 2: Total Dose (mL): MEASUREMENTS (Male / Female) Normal Values 2D ECHO LV Diastolic Diameter PLAX 2.7 cm 4.2 - 5.9 / 3.9 - 5.3 cm LV Systolic Diameter PLAX 2.1 cm IVS Diastolic Thickness 1.3 cm 0.6 - 1.0 / 0.6 - 0.9 cm LVPW Diastolic Thickness 1.6 cm 0.6 - 1.0 / 0.6 - 0.9 cm LV Relative Wall Thickness 1.1 RV Internal Dim ED PLAX 2.0 cm LA Volume 45.6 cm??? 18 - 58 / 22 - 52 cm??? LA Volume Index 25.2 cm???/m??? 16 - 28 cm???/m??? M-MODE Aortic Root Diameter MM 2.6 cm LA Systolic Diameter MM 3.0 cm LA Ao Ratio MM 1.1 AV Cusp Separation MM 1.7 cm DOPPLER AV Peak Velocity 157.8 cm/s AV Peak Gradient 10.0 mmHg AV Mean Velocity 110.6 cm/s AV Mean Gradient 5.4 mmHg AV Velocity Time Integral 30.3 cm LVOT Peak Velocity 92.6 cm/s LVOT Peak Gradient 3.4 mmHg LVOT Velocity Time Integral 18.1 cm MV Area PHT 4.8 cm??? Mitral E Point Velocity 73.3 cm/s Mitral A Point Velocity 107.1 cm/s Mitral E to A Ratio 0.7 MV Deceleration Time 159.5 ms MV E' Velocity 11.7 cm/s Mitral E to MV E' Ratio 6.3 TR Peak Velocity 227.7 cm/s TR Peak Gradient 20.7 mmHg Right Ventricular Systolic Press 25.7 mmHg FINDINGS Left Ventricle Left ventricular cavity size normal. Normal left ventricular systolic function with no obvious regional wall motion abnormalities. Left ventricular ejection fraction is estimated at 55-60 %. Moderately increased left ventricular wall thickness. Right Ventricle Normal right ventricular size and function. Right ventricular systolic pressure within normal limits. Right Atrium Normal right atrial size. Left Atrium Normal left atrial size. Mitral Valve Structurally normal mitral valve. Mild mitral annular calcification. No mitral stenosis, regurgitation or prolapse. Aortic Valve No aortic valve stenosis or regurgitation. Tricuspid Valve Structurally normal tricuspid valve. Mild tricuspid regurgitation. Pulmonic Valve Structurally normal pulmonic valve. Pericardium No pericardial effusion.echo free space anterior to the right ventricle likely represents a fat pad. Aorta Normal size aortic root and proximal ascending aorta. CONCLUSIONS 1. Normal left ventricle size and systolic function 2. Mild tricuspid regurgitation with no evidence of pulmonary hypertension Previewed by: Dr. Betsy Laird MD (Electronically Signed) Final Date: 28 March 2023 07:06
== END | disposition home or self-care (01) ==
LOC: RADECHMAIN 11:13
PROVIDERS: ATTEND Family Medicine
DX: R42 Dizziness and giddiness (principal); I36.1 Nonrheumatic tricuspid (valve) insufficiency
CPT/HCPCS: 93306